=== PATIENT | female | born 1985 | race Caucasian/White ===

== ENCOUNTER 2020-04-12 07:16 | Outpatient (CLI) | payer MEDICAID, SELFPAY ==
[2020-04-13 14:39] LABS: COVID-19 RT-PCR Result NEGATIVE (Negative)
== END 2020-04-12 07:36 ==
PROVIDERS: PCP Nurse Practitioner Adult Health; Visit Provider Otolaryngology Otolaryngology/Facial Plastic Surgery
DX: Z11.59 Encounter for screening for other viral diseases (principal); Z01.818 Encounter for other preprocedural examination
CPT/HCPCS: U0003

== ENCOUNTER 2020-04-15 06:05 | Day surgery (SDC) | payer MEDICAID, SELFPAY ==
[2020-04-15] VITALS (8 sets, daily range): BP systolic 113–129; BP diastolic 58–78; PULSE 51–78; RESP 13–17; TEMP 36.5–36.6; O2SAT 100
[2020-04-15] MEDS: Lactated Ringers 1,000 ML 80 ML IV (07:00)
--- NOTE | 2020-04-15 07:36 | W.PM.DSUDISC ---
Discharge Plan Disposition Patient Disposition: HOME Discharge Details Attending Provider: Emery Lilly Primary Care Provider: Michelle Claudio Home Meds and New Rx's Prescriptions: No Action multivitamin [Daily Multi-Vitamin] 1 EACH tablet 1 ea PO DAILY RF: 0 omega-3 fatty acids 1,000 MG capsule 1,000 mg PO DAILY RF: 0 Mirena 1 EACH intrauterine device 1 ea Intrauterine ONCE Qty: 1 RF: 0 triamcinolone acetonide [Nasacort] 55 mcg Aerosol,[place] 1 spray INTRANASAL DAILY PRNRF: 0 DS: Diagnosis Discharge Diagnosis (1) Lesion of tonsil: Status: Acute (2) Papilloma of oral cavity: Status: Acute
--- NOTE | 2020-04-15 07:37 | W.PM.DSUDISC ---
Discharge Plan Disposition Patient Disposition: HOME Condition: Good Discharge Details Attending Provider: Emery Lilly Primary Care Provider: Michelle Claudio Home Meds and New Rx's Prescriptions: No Action multivitamin [Daily Multi-Vitamin] 1 EACH tablet 1 ea PO DAILY RF: 0 omega-3 fatty acids 1,000 MG capsule 1,000 mg PO DAILY RF: 0 Mirena 1 EACH intrauterine device 1 ea Intrauterine ONCE Qty: 1 RF: 0 triamcinolone acetonide [Nasacort] 55 mcg Aerosol,[place] 1 spray INTRANASAL DAILY PRNRF: 0 Discharge Instructions Additional Instructions: see sheet Activity:: Activity as Tolerated Remove Dressings/Wound Care:: 24 hours Shower/Bathe:: 24 hours Diet:: As Tolerated DS: Diagnosis Discharge Diagnosis (1) Lesion of tonsil: Status: Acute (2) Papilloma of oral cavity: Status: Acute
--- NOTE | 2020-04-15 07:38 | W.PROCNOTE ---
Date of service: 04/15/20 Procedure Note Date of procedure: 04/15/20 Procedure: Right tonsillectomy and excision uvula Surgeon/Proceduralist/Physician: Emery Lilly Procedure Diagnosis: oropharyngeal lesions Procedure Indications: lesions of OP region, suspect HPV. Pt has elected to only have right tonsil and lesions of uvula dealt with. She wishes to leave L tonsil in place Procedure Description: Patient was brought back to the operating suite in stable condition placed supine on the table and intubated in normal fashion. Timeout was taken to confirm proper patient and procedure. Oral McIvor retractor was placed in the oral cavity and suspended from Abdi stand, there was no evidence of bifid uvula or submucosal cleft of the soft palate. There was papillomatous type lesions of the left uvula as well as the right tonsil with widespread tonsil stones. Red rubber catheter was used and clamped to the side of the right soft palate to the oral cavity for palatal elevation. Curved Allis forceps was used to grab the superior pole of the right tonsil dissection within the peritonsillar fascial plane was performed with scant bleeding from the superior to mid pole to inferior aspect, final amputation performed with suction cautery, papillomatous mass with a tonsil excised in entirety. The uvula lesion on the left side was excised with electrocautery. Tonsil sponge was used to wipe the tonsillar fossa, there was no bleeding. Gastric contents were suctioned, oral McIvor retractor removed, no injury to dentition or jaw noted. Total blood loss 1 cc, stable to PACU.
--- NOTE | 2020-04-15 08:07 | TONSIL_PTH ---
PATIENT: Preeti Hayes LOC: [facility] U#:[id number] AGE/SX: 34/F ROOM: RE04/15/[address]: Emery Lilly DO : 1985 BED: DIS: 04/15/2020 SPEC #: [id number] RECD: 04/15/20 12:37 STATUS: [facility] REQ #: [id number] NATHAN: 04/15/20 08:[address]: Emery Lilly DEPT: Surgical Specimen RECD BY: Diana Andrews ENTERED: 04/15/20 12:37 SP TYPE: TONSIL OTHR DR: Michelle Claudio APRN Tissues: 1 - TONSIL AGE 17 & OVER 2 - UVULA Procedures: GROSS AND MICRO LEVEL 3 Comments: [id number]
[2020-04-15] MEDS: Oxymetazolone 0.05% SPRAY 15 ML BTL (08:12)
[2020-04-15] MEDS: fentaNYL 100 MCG/2 ML VIAL IVP ×2 (08:46→08:56)
[2020-04-15] MEDS: oxyCODONE 5 mg/Acetaminophen 325 mg TAB PO (10:05)
== END 2020-04-15 10:55 | disposition home or self-care (01) ==
PROVIDERS: PCP Nurse Practitioner Adult Health; Visit Provider Otolaryngology Otolaryngology/Facial Plastic Surgery
PROC: (CPT 42826; principal; 2020-04-15 07:30)
DX: D10.39 Benign neoplasm of other parts of mouth (principal)
CPT/HCPCS: 42826; 42104; 81025; 88304; J1100; J2001; J2250; J2405; J3010

== ENCOUNTER 2020-04-16 20:59 | Emergency (ER) | payer MEDICAID, SELFPAY ==
--- NOTE | 2020-04-16 21:09 | ED.GENADUL_ITS ---
Discharge Plan Disposition Patient Disposition: HOME Condition: Improving Discharge Details Chief Complaint: Allergic Clinical Impression: Allergic reaction Primary Care Provider: Michelle Claudio ED Provider: Kriss Posada Home Meds and New Rx's Prescriptions: New prednisone 20 mg tablet 40 mg PO DAILY Qty: 6 RF: 0 Continued multivitamin [Daily Multi-Vitamin] 1 EACH tablet 1 ea PO DAILY RF: 0 omega-3 fatty acids 1,000 MG capsule 1,000 mg PO DAILY RF: 0 Mirena 1 EACH intrauterine device 1 ea Intrauterine ONCE Qty: 1 RF: 0 triamcinolone acetonide [Nasacort] 55 mcg Aerosol,[place] 1 spray INTRANASAL DAILY PRNRF: 0 Discharge Instructions Instructions: General Allergic Reaction (ED) Additional Instructions: Based on you history, I am concerned that you are having allergic reaction to oxycodone. Please not take this medication.. Please contact your surgeon to discuss pain management as needed. May continue to use cold therapy to help with your discomfort. Please take the steroids as prescribed. If you develop fever/chills, difficulty breathing, shortness of breath, swelling of your tongue, rash or other new/worsening symptoms care urgently once again. Otherwise, please call your surgeon tomorrow to discuss your postoperative complication. Referrals: Emery Lilly DO [OSTEOPATHIC DOCTOR] - Michelle Claudio, [facility] [facility] [Primary Care Provider] - Discharge Data Discharge Date/Time-TO BE ENTERED AT DEPARTURE: 04/16/20 22:56 Medical Decision Making Patient pleasant 34-year-old female presents today with concern for allergic reaction. She reports that she underwent surgical intervention yesterday and has been on oxycodone. She reports that she took oxycodone at noon noted to be slightly itchy afterwards. Took a second dose again later this evening and reports that after that she began feeling like her lips and tongue were swelling. States that she is been having slight difficulty breathing. Reports that she has a known history to shrimp. Has not had reaction like this to medications historically. Reports that she has been on oxycodone before without reaction. She reports that she took 50 of Benadryl approximately 1 hour prior to arrival and does report that this did help somewhat with her symptoms but now she is feeling quite fatigued. On exam, patient appears anxious but otherwise nontoxic. Area of right tonsillectomy does appear to be healing well with no active bleeding. I do not appreciate any objective swelling of her lips or tongue. She is no wheezing, rales or rhonchi. Is moving air well. Hemodynamically stable. We will augment the Benadryl with famotidine, prednisone. Will give Zofran for nausea. Denies any evidence to suggest anaphylaxis will hold off on epinephrine at this time. Patient is feeling much improved. We will continue her on prednisone. Advised nonnarcotic options at this time. She seems to be tolerating her postoperative pain quite well. Appears to be healing well without evidence of complication. She will reach out to her ENT physician tomorrow to discuss further pain management if needed. We discussed return precautions. All of her questions and concerns were addressed and she is in agreement this plan. [facility] General Mode of arrival: ambulatory . Date/Time Provider Initiated Documentation: 04/16/20 21:02 . Limitations to Documentation: no limitations . Information obtained by: patient and RN notes reviewed . History of Present Illness 34 year old F presents to the emergency department with the chief complaint of allergic reaction, described as moderate, with intensity rated at 4. Quality is described as aching (s/p tonsillectomy), and is localized to the mouth. Patient started experiencing this hour(s) (allergic symptoms began at 4pm, endorses tongue swelling) and it has been constant. No relieving factors improve symptom(s), Medication worsens symptoms (oxycodone) . Patient notes shortness of breath; denies chest pain, cough, diaphoresis, fever/chills, headaches, loss of appetite, nausea/vomiting and rash. Patient did receive the following treatments prior to arrival, none Related Data Home Medications Medication Instructions Recorded Confirmed multivitamin [Daily Multi-Vitamin] 1 ea PO DAILY 12/18/13 04/15/20 omega-3 fatty acids 1,000 mg PO DAILY 12/18/13 04/15/20 Mirena 1 ea INTRAUTERINE ONCE #1 implant 08/04/17 04/10/20 triamcinolone acetonide [Nasacort] 1 spray INTRANASAL DAILY PRN 04/10/20 04/15/20 prednisone 40 mg PO DAILY #6 tab 04/16/20 Previous Rx's Medication Instructions Recorded prednisone 40 mg PO DAILY #6 tab 04/16/20 Allergies Allergy/AdvReac Type Severity Reaction Status Date / Time shrimp Allergy Severe below Verified 04/15/20 06:21 Review of Systems Constitutional Constitutional: Reports as per HPI, Denies chills, Denies fever(s) and Denies headache(s) Eyes Eyes: Reports as per HPI, Denies eye discharge and Denies irritation ENT Ears, Nose, Mouth, and Throat: Reports as per HPI and Denies headache(s) Cardiovascular Cardiovascular: Reports as per HPI, Denies chest pain, Reports dyspnea and Denies dyspnea on exertion Respiratory Respiratory: Reports as per HPI, Denies pain on inspiration, Denies pain with cough, Reports dyspnea, Denies dyspnea on exertion and Denies wheezing Gastrointestinal Gastrointestinal: Reports as per HPI, Denies abdominal pain, Denies change in bowel habits, Denies nausea and Denies vomiting Integumentary/Breasts Skin/Breast: Reports as per HPI and Denies rash Neurologic Neurologic: Reports as per HPI and Denies headache(s) Allergic/Immunologic Allergic/Immunologic: Denies wheezing PFSH Medical History History of motion sickness (Acute) Pt states getting worse as she gets older Shrimp allergy (Acute) anaphylaxis Surgical History Cervical Procedure LEEP procedure 2007 - Pt states no anesthesia Hx of wisdom tooth extraction (Acute) Post operative nausea Family History Mother No problems noted. Father Hyperlipidemia Sister No problems noted. Son No problems noted. Social History Smoking/Tobacco Use Status: Never Alcohol Intake: current Alcohol Intake frequency: a few times a week Alcohol type: beer and wine Drug use: Occasionally Substance use type: marijuana Do you feel safe at home: Yes Do you feel safe in your relationship?: Yes Exam Const General: cooperative, healthy appearing, comfortable, no acute distress, well developed and well groomed Nutritional Appearance: average body habitus and well nourished Orientation: alert and awake [facility] Head: normal to inspection, normocephalic and atraumatic Ears: hearing grossly normal bilaterally, external ears normal and TM's normal bilaterally General nose exam: external nose normal and nares normal Face and sinus: normal facial exam, sinuses nontender and face symmetric Mouth: oral mucosae normal, lip normal, tongue normal, oropharynx normal and moist mucous membranes Teeth and gingiva: dentition normal Throat: other (Consistent with recent surgery, appears to be healing well) Eyes General: appearance normal, both eyes and all related structures Neck Neck: normal visual inspection, full ROM, no lymphadenopathy and no meningeal signs Resp Effort & Inspection: normal respiratory effort, able to speak in complete sentences and no respiratory distress Auscultation: clear to auscultation bilaterally, no rales, no rhonchi and no wheezes Cardio Rate: regular rate Rhythm: regular rhythm Heart Sounds: S1 normal and S2 normal Skin General skin exam: no rashes or lesions noted Neuro General: patient alert and patient awake Cognition: normal cognition Speech: speech normal Gait: normal gait Psych Appearance: grossly normal and well kempt Mental Status: mental status grossly normal Speech and Movement: speech and movement normal
[2020-04-16 21:10] VITALS: BP 128/74; PULSE 79; RESP 16; TEMP 36.2; O2SAT 100
[2020-04-16] MEDS: Famotidine 20 MG TAB 40 MG PO (21:26)
[2020-04-16] MEDS: Ondansetron O.D.T. 4 MG TABEF PO (21:26)
[2020-04-16] MEDS: predniSONE 20 MG TAB 40 MG PO (21:27)
[2020-04-16 22:20] VITALS: BP 137/71; PULSE 61; RESP 16; TEMP 36.6; O2SAT 98
--- NOTE | 2020-04-16 22:21 | NUR.NOTE ---
Nursing Note: PT reports relief after medication. Pt reports decreased lip and tongue swelling. Pt continues to report weakness and fatigue.
== END 2020-04-16 22:56 | disposition home or self-care (01) ==
PROVIDERS: Emergency Provider Physician Assistant; PCP Nurse Practitioner Adult Health
DX: L29.9 Pruritus, unspecified (principal); R22.0 Localized swelling, mass and lump, head; R06.00 Dyspnea, unspecified; T40.2X5A Adverse effect of other opioids, initial encounter; Y83.6 Removal of other organ (partial) (total) as the cause of abnormal reaction of the patient, or of later complication, without mention of misadventure at the time of the procedure
CPT/HCPCS: 99283; 99284; J7512

== ENCOUNTER 2020-04-21 10:23 | Emergency (ER) | payer MEDICAID, SELFPAY ==
--- NOTE | 2020-04-21 10:24 | W.ED.GENAD ---
Discharge Plan Disposition Patient Disposition: HOME Condition: Stable Discharge Details Chief Complaint: Abd Prob Clinical Impression: Adnexal mass, Abdominal cramping Primary Care Provider: Michelle Claudio ED Provider: Kriss Posada Home Meds and New Rx's Prescriptions: Continued multivitamin [Daily Multi-Vitamin] 1 EACH tablet 1 ea PO DAILY RF: 0 omega-3 fatty acids 1,000 MG capsule 1,000 mg PO DAILY RF: 0 Mirena 1 EACH intrauterine device 1 ea Intrauterine ONCE Qty: 1 RF: 0 triamcinolone acetonide [Nasacort] 55 mcg Aerosol,[place] 1 spray INTRANASAL DAILY PRNRF: 0 prednisone 20 mg tablet 40 mg PO DAILY Qty: 6 RF: 0 Discharge Instructions Instructions: Abdominal Pain (ED) Additional Instructions: Your imaging is concerning for a 2 cm adnexal lesion on the right side as discussed. I would like for you to have ultrasound for further evaluation. As we discussed, Dr. Catalan does not feel that this consistent with torsion but is happy to see you in the office. A outpatient ultrasound has been ordered. Would also like for you to call [facility] wellness to schedule follow-up appointment, number listed below. If you develop fever/chills, increased/recurrent pain or other new/worsening symptoms seek care urgently once again. You may continue with the Tylenol and ibuprofen as previously advised your postoperative pain. Your next dose of ibuprofen is not due until 930 tonight. You were given IV anti-inflammatory here today. You may use Simethicone or Mylanta to help with GI upset if this recurs. Referrals: Michelle Claudio NP [Primary Care Provider] - Rolf Catalan MD [ [facility] STAFF PHYSICIAN] - Discharge Data Discharge Date/Time-TO BE ENTERED AT DEPARTURE: 04/21/20 14:00 Medical Decision Making Patient is a pleasant 34-year-old female presents today with chief complaint of right lower quadrant pain. Patient was actually seen by myself earlier this week for an allergic reaction which she reports subsided well after prednisone burst. She is no longer taking steroids. Patient is also status post tonsillectomy this week. Feels that she is healing well from this. Is using Tylenol and Advil to help with her post tonsillectomy discomfort. Has reported routine healing. She reports that this morning she was woken at 3 AM with right lower quadrant pain. She is not had pain like this historically. No previous abdominal surgeries. She endorses nausea but no vomiting. States that she has had 3 soft bowel movements which were orange. No change in urinary habits. Denies status. No previous abdominal surgeries. On exam, she appears anxious. Lungs are clear, normal cardiac exam. Abdomen is significant for pain over McBurney's point but otherwise, no peritoneal findings. No CVA tenderness. Plan to obtain labs, hydrate patient and obtain imaging to evaluate for potential early appendicitis. We did discuss pain management options. She did have an allergic reaction oxycodone this week. At this point, her pain seems to be fairly manageable but her anxiety is quite elevated. Will get half milligram of IV Ativan. CT reviewed by radiologist: FINDINGS: Limitations: None. Lungs: Minimal dependent likely atelectatic changes in the lung bases. Liver: Low-density lesion high in the right lobe of the liver measures 11 mm with the suggestion of some peripheral and nodular enhancement raising the question of a hemangioma.. Gallbladder and bile ducts: No gallstones or choledocholithiasis. Pancreas: Normal. No ductal dilation. Spleen: Normal. No splenomegaly. Adrenals: Normal. No mass. Kidneys and ureters: The kidneys enhance symmetrically without stone or hydronephrosis. Stomach and bowel: Sigmoid diverticuli. Wall thickening versus of the colon at the level of the splenic flexure without definite surrounding fatty stranding. Similar poor distension of the colon at the level of the a patent flexure. Ingested debris within the base of the cecum. Appendix: The appendix is best seen on the coronal images and measures only 6 mm in diameter. No secondary signs of acute appendicitis. Intraperitoneal space: Small amount of free fluid in the pelvis can be physiologic in younger females. Vasculature: Mild ectasia of the aorta. Pelvic varices. Lymph nodes: Unremarkable. No enlarged lymph nodes. Bladder: Unremarkable as visualized. Reproductive: IUD centrally in the uterus. Neck is a lesion on the right measures 29 mm can be followed with ultrasound. Slightly smaller lesion on the left. Bones/joints: Early degenerative changes at L5-S1 with loss of the disc space and some retrolisthesis as well as a bulging disc. No acute fracture. Soft tissues: Unremarkable. IMPRESSION: 1. No evidence of acute appendicitis. Minimal fatty stranding in the more remote mesentery of the midline pelvis without focality. 2. Regional areas of wall thickening versus nondistention of the colon, without surrounding fatty stranding, which are nonspecific. Follow-up suggested. 3. No free air. 4. Question hemangioma of the liver liver. No further follow-up is recommended. 5. Likely physiologic free fluid. 6. 29 mm low-density lesion right adnexa with a slightly smaller lesion on the left. Consider ultrasound follow-up per clinical indications. I requested water restoration technician but none available at this time. Consulted with Dr. Catalan with [facility]. He advised that based on the size of the low-density lesion as resolution of pain, there is a 0% chance of torsion. Do not feel that emergent transfer to facility with ultrasound capability was appropriate at this time. He did advise and he would follow-up with the patient in clinic. I discussed these findings as well as Dr. Catalan's recommendations with the patient. I did offer transfer to another facility for further evaluation with ultrasound. At this point, she does not believe that this is the source of her pain. She is now describing the pain is more of a cramping associated with using Tylenol or ibuprofen. This is only been noting since this morning. She has been using Tylenol and ibuprofen for the past 4 days in the postoperative setting. She is not having any epigastric discomfort. She has been using Prilosec. And I believe that her pain is consistent with ulcer. As the patient did have a recent allergic reaction to oxycodone, I am concerned that we have limited other options to help with her discomfort. Patient I discussed disposition at length. We had shared decision making and decided on discharge with outpatient ultrasound tomorrow with follow-up with [employer]. Patient feels comfortable discharge at this time. She does feel that it is medications that may be causing abdominal cramping when taken orally, will give her dose of Toradol here. We did discuss return precautions in depth, particularly signs of ovarian torsion. All of her questions and concerns were addressed, she isin agreement with this plan. HPI General Mode of arrival: ambulatory. Date/Time Provider Initiated Documentation: 04/21/20 10:24. Limitations to Documentation: no limitations. Information obtained by: patient and RN notes reviewed. History of Present Illness 35 year old F presents to the emergency department with the chief complaint of RLQ pain, described as moderate, with intensity rated at 3. Quality is described as aching, and is localized to the abdomen. Patient reports no radiation. Patient started experiencing this hour(s) (started at 0300) and it has been constant. No relieving factors improve symptom(s), No exacerbating factors reported . Patient notes loss of appetite and nausea/vomiting (nausea, no vomiting); denies chest pain, diaphoresis, fever/chills, rash, shortness of breath and weakness. Patient did receive the following treatments prior to arrival, NSAID and other (tylenol) Related Data Home Medications Medication Instructions Recorded Confirmed multivitamin [Daily Multi-Vitamin] 1 ea PO DAILY 12/18/13 04/15/20 omega-3 fatty acids 1,000 mg PO DAILY 12/18/13 04/15/20 Mirena 1 ea INTRAUTERINE ONCE #1 implant 08/04/17 04/10/20 triamcinolone acetonide [Nasacort] 1 spray INTRANASAL DAILY PRN 04/10/20 04/15/20 prednisone 40 mg PO DAILY #6 tab 04/16/20 Previous Rx's Medication Instructions Recorded prednisone 40 mg PO DAILY #6 tab 04/16/20 Allergies Allergy/AdvReac Type Severity Reaction Status Date / Time shrimp Allergy Severe below Verified 04/15/20 06:21 General SELENE: 3 Review of Systems Constitutional Constitutional: Reports as per HPI, Denies chills, Denies fatigue, Denies fever(s) and Denies headache(s) ENT Ears, Nose, Mouth, and Throat: Denies headache(s) Cardiovascular Cardiovascular: Reports as per HPI, Denies chest pain and Denies dyspnea Respiratory Respiratory: Reports as per HPI, Denies cough and Denies dyspnea Gastrointestinal Gastrointestinal: Reports as per HPI Musculoskeletal Musculoskeletal: Reports as per HPI and Denies back pain Integumentary/Breasts Skin/Breast: Reports as per HPI and Denies rash Neurologic Neurologic: Reports as per HPI and Denies headache(s) Endocrine Endocrine: Denies fatigue [facility] Medical History (Updated 04/24/20 @ 10:01 by Francesca Huang) History of motion sickness (Acute) Pt states getting worse as she gets older Lesion of tonsil (Inactive) Shrimp allergy (Acute) anaphylaxis Tonsil stone (Inactive) Surgical History Cervical Procedure LEEP procedure 2007 - Pt states no anesthesia Hx of wisdom tooth extraction (Acute) Post operative nausea Family History Mother No problems noted. Father Hyperlipidemia Sister No problems noted. Son No problems noted. Social History Smoking/Tobacco Use Status: Never Alcohol Intake: current Alcohol Intake frequency: a few times a week Alcohol type: beer and wine Drug use: Occasionally Substance use type: marijuana Do you feel safe at home: Yes Do you feel safe in your relationship?: Yes Exam Const General: cooperative, healthy appearing, uncomfortable (appears uncomfortable), well developed and anxious Nutritional Appearance: average body habitus and well nourished Orientation: alert and awake [facility] Head: normal to inspection Mouth: moist mucous membranes Throat: posterior oropharynx normal (post tonsillectomy appears to be healing well) Resp Effort & Inspection: normal respiratory effort, able to speak in complete sentences and no respiratory distress Auscultation: clear to auscultation bilaterally, no rales, no rhonchi and no wheezes Cardio Rate: regular rate Rhythm: regular rhythm Heart Sounds: S1 normal and S2 normal GI Inspection: normal to inspection Palpation: soft, no hepatosplenomegaly, not firm, no guarding, no hepatosplenomegaly, no hernias, no pulsatile masses, not rigid and tender in the RLQ and at McBurney's point; psoas sign negative and with no rebound tenderness Percussion: normal to percussion Auscultation: normal bowel sounds Back/Spine/Pelvis Back: no CVA tenderness Skin General skin exam: no rashes or lesions noted Trauma: no lacerations or abrasions Neuro General: patient alert and patient awake Cognition: normal cognition Speech: speech normal Gait: normal gait Psych Appearance: grossly normal and well kempt Mental Status: mental status grossly normal Speech and Movement: speech and movement normal Mood: anxious mood
[2020-04-21 10:29] VITALS: BP 133/78; PULSE 89; TEMP 36.6; O2SAT 98
[2020-04-21 10:52] LABS: Bilirubin Negative (Negative); Blood Negative (Negative); Clarity Clear (Clear); Glucose Negative (Negative); Ketones Negative (Negative); Leukocyte Esterase Negative (Negative); Nitrite Negative (Negative); Specific Gravity 1.015 (1.005-1.025); Urobilinogen 0.2 EU/dL (Up TO 0.2); pH 7.5 (5-8)
[2020-04-21 11:40] LABS: Abs Immature Grans 0.04 10^3/uL (0.0-0.06); Absolute Basophil Count 0.02 10^3/uL (0.0-0.2); Absolute Eosinophil Count 0.05 10^3/uL (0.0-0.7); Absolute Lymphocyte Count 1.21 10^3/uL (1.2-3.4); Absolute Monocyte Count 0.36 10^3/uL (0.1-0.8); Absolute Neutrophil Count 5.94 10^3/uL (1.2-6.7); Basophils % 0.3; Eosinophils % 0.7; HCT 37.8 % (36.0-46.0); HGB 12.6 g/dL (11.2-15.7); Immature Grans % 0.5; Lymphocytes % 15.9; MCH 29.3 pg (27.0-33.0); MCHC 33.3 % (32.0-36.0); MCV 87.9 fL (80-95); MPV 9.9 fL (8.0-11.0); Monocytes % 4.7; Neutrophils % 77.9; Nucleated RBC 0 %; Platelet Count 238 10^3/uL (130-400); RDW 12.7 % (11.7-14.6); WBC 7.62 10^3/uL (4.4-10.8)
[2020-04-21] MEDS: Lactated Ringers 1,000 ML 1000 ML IV (11:46)
[2020-04-21] MEDS: LORazepam 2 MG/ML VIAL 0.5 MG IVP (11:46)
[2020-04-21] MEDS: Normal Saline - Diluent 50 ML VIAL IV (11:55)
[2020-04-21 11:58] LABS: ALT 17 U/L (14-59); AST 12 U/L (15-37); Alkaline Phosphatase 54 U/L (46-116); Anion Gap 9.9 mmol/L (3-11); BUN 5 mg/dL (7-18); Bilirubin, Total 0.4 mg/dL (0.2-1.0); CO2 27.1 mmol/L (21.0-32.0); CREATININE 0.92 mg/dL (0.55-1.02); Calcium 9.7 mg/dL (8.5-10.1); Chloride 104 mmol/L (98-107); Glucose 96 mg/dL (74-106); Potassium 3.6 mmol/L (3.5-5.1); Sodium 141 mmol/L (136-145); Total Protein 7.4 g/dL (6.4-8.2)
[2020-04-21] MEDS: Omnipaque 350 MG/ML 100 ML BTL IJ (12:06)
[2020-04-21] MEDS: Normal Saline Flush 10 ML SYR IVP (12:06)
--- NOTE | 2020-04-21 12:10 | DI.CT_ITS ---
EXAM: CT ABDOMEN PELVIS W CLINICAL HISTORY: pain over McBurney's point TECHNIQUE: Imaging Protocol: Axial computed tomography images with coronal and sagittal reformatted images were created and reviewed CONTRAST MATERIAL: Intravenous: Omnipaque 350 Contrast volume:91 mL Oral: No COMPARISON: No exams were available for comparison FINDINGS: ABDOMEN: Lung Bases: Mild dependent atelectasis. Liver: Normal density. 1.1 cm hypodense lesion in the dome of the right lobe of the liver. There is a question of peripheral nodular enhancement and a hemangioma should be considered. Portal, Superior Mesenteric, and Splenic Veins: Unremarkable. Gallbladder and Biliary Tract: No radiodense calculus or dilation. Pancreas: Normal density, no abnormal calcifications or inflammatory process. Spleen: Normal. Adrenals: No masses seen. Kidneys: Normal size, contour and axis. No radiodense stones or obstructive uropathy. No masses seen. Abdominal Aorta: Abdominal portion non-dilated. Bowel: There is thickening of the wall of the colon in the splenic flexure without surrounding edema. This may be due to underdistention. No evidence of an acute appendicitis. There is a 1.1 cm density seen in the base of the cecum which may be ingested material. Peritoneal Cavity: There is a small amount of free fluid in the pelvis which may be physiologic. Lymph Nodes: Within normal limits. Bones: Mild degenerative changes seen in the L5-S1 disc space. Soft Tissues: Unremarkable. PELVIS: Bladder: Symmetric distention, no gross wall thickening. Reproductive Organs: IUD in good position. Round low-density lesions seen in the ovaries. The largest is on the right and measures 3 cm. These likely reflect cysts. Lymph Nodes: Within normal limits. Bones: Within normal limits. IMPRESSION: 1. No evidence of acute appendicitis. 2. Apparent wall thickening in the colon which likely reflects under distension. No pericolonic infla mmatory changes are seen. 3. Question of a hemangioma in the liver. 4. No free air. RADIATION DOSE DELIVERED: 647.2mGy.cm Total DLP DATA REPOSITORY: All CT scans at this facility are submitted to the National Radiology Data Registry (NRDR) Dose Index Registry (DIR) with the [employer] (A[employer]). RADIATION OPTIMIZATION: All CT scans at this facility use at least one of these dose optimization te chniques: automated exposure control; mA and/or kV adjustment per patient size (includes targeted exa ms where dose is matched to clinical indication); or iterative reconstruction.
[2020-04-21 12:11] VITALS: BP 127/66; PULSE 63; RESP 16; O2SAT 99
--- NOTE | 2020-04-21 12:26 | DI.VRAD_ITS ---
PROCEDURE INFORMATION: Exam: CT Abdomen And Pelvis With Contrast Exam date and time: 04/21/2020 12:00 PM Age: 34 years old Clinical indication: Other: Pain over mcburney's point TECHNIQUE: Imaging protocol: Computed tomography of the abdomen and pelvis with intravenous contrast. Contrast material: OMNIPAQUE 350; Contrast volume: 91 ml; Contrast route: INTRAVENOUS (IV); COMPARISON: No relevant prior studies available. FINDINGS: Limitations: None. Lungs: Minimal dependent likely atelectatic changes in the lung bases. Liver: Low-density lesion high in the right lobe of the liver measures 11 mm with the suggestion of some peripheral and nodular enhancement raising the question of a hemangioma.. Gallbladder and bile ducts: No gallstones or choledocholithiasis. Pancreas: Normal. No ductal dilation. Spleen: Normal. No splenomegaly. Adrenals: Normal. No mass. Kidneys and ureters: The kidneys enhance symmetrically without stone or hydronephrosis. Stomach and bowel: Sigmoid diverticuli. Wall thickening versus of the colon at the level of the splenic flexure without definite surrounding fatty stranding. Similar poor distension of the colon at the level of the a patent flexure. Ingested debris within the base of the cecum. Appendix: The appendix is best seen on the coronal images and measures only 6 mm in diameter. No secondary signs of acute appendicitis. Intraperitoneal space: Small amount of free fluid in the pelvis can be physiologic in younger females. Vasculature: Mild ectasia of the aorta. Pelvic varices. Lymph nodes: Unremarkable. No enlarged lymph nodes. Bladder: Unremarkable as visualized. Reproductive: IUD centrally in the uterus. Neck is a lesion on the right measures 29 mm can be followed with ultrasound. Slightly smaller lesion on the left. Bones/joints: Early degenerative changes at L5-S1 with loss of the disc space and some retrolisthesis as well as a bulging disc. No acute fracture. Soft tissues: Unremarkable. IMPRESSION: 1. No evidence of acute appendicitis. Minimal fatty stranding in the more remote mesentery of the midline pelvis without focality. 2. Regional areas of wall thickening versus nondistention of the colon, without surrounding fatty stranding, which are nonspecific. Follow-up suggested. 3. No free air. 4. Question hemangioma of the liver liver. No further follow-up is recommended. 5. Likely physiologic free fluid. 6. 29 mm low-density lesion right adnexa with a slightly smaller lesion on the left. Consider ultrasound follow-up per clinical indications. Dictated and Authenticated by: Arcenio Light MD. Ordering:CECY Monterroso MD
[2020-04-21] MEDS: Ketorolac 30 MG/ML VIAL IM (13:31)
[2020-04-21 13:32] VITALS: BP 137/73; PULSE 52; RESP 16; O2SAT 99
== END 2020-04-21 14:00 | disposition home or self-care (01) ==
PROVIDERS: Emergency Provider Physician Assistant; PCP Nurse Practitioner Adult Health
DX: R10.31 Right lower quadrant pain (principal); R11.0 Nausea; R93.5 Abnormal findings on diagnostic imaging of other abdominal regions, including retroperitoneum
CPT/HCPCS: 36415; 80053; 81025; 96361; 96372; 96374; 99285; 74177; 81003; 85025; 99284; J1885; J2060; J3490

== ENCOUNTER 2020-04-22 07:44 | Outpatient (CLI) | payer MEDICAID, SELFPAY ==
--- NOTE | 2020-04-22 | DI.US_ITS ---
EXAM: US PELVIS TRANSVAGINAL CLINICAL HISTORY: 29 MM ADENEXAL MASS RT SIDE. TECHNIQUE: Transabdominal and transvaginal pelvic ultrasound was performed using standard protocol. COMPARISON: US CERVICAL LENGTH TRANSVAG OB from 03/09/[address] ABDOMEN PELVIS W from 04/21/[address] ABDOMEN PELVIS W from 04/21/2020 FINDINGS: KIDNEYS: Kidneys are symmetric in size. No evidence of renal calculi. No evidence of hydronephrosis. No renal mass or cyst identified. UTERUS: Position: Anteverted. Size: 8.8 long by 4.8 AP by 5.9 transverse cm Endometrium: 0.1 cm. Normal for patient's menstrual status. There is an IUD in good position. Myometrium: Unremarkable. Cervix: Unremarkable. OVARIES: Right: 3.2 x 1.9 x 2.0 cm Cyst or mass: 1.2 x 0.9 x 1 cm cyst. Left: 2.3 x 1.1 x 1.4 cm Cyst or mass: Small follicular cysts. DOPPLER: Color: Symmetric and uniform flow to both ovaries. No hyperemia. Duplex: Normal ovarian arterial waveforms visualized. CUL-DE-SAC: Free fluid: None. Other: None. IMPRESSION: 1. Normal sonographic appearance of the kidneys. 2. Normal-appearing uterus with endometrial stripe within normal limits. 3. IUD is in good position. 4. 1.2 x 0.9 x 1 cm dominant right ovarian cyst. Otherwise unremarkable ovaries. DATA REPOSITORY:
== END 2020-04-22 08:04 ==
PROVIDERS: PCP Nurse Practitioner Adult Health; Visit Provider Physician Assistant
DX: N83.201 Unspecified ovarian cyst, right side (principal)
CPT/HCPCS: 76830; 76856

== ENCOUNTER 2020-06-28 09:31 | Emergency (ER) | payer MEDICAID, SELFPAY ==
[2020-06-28] VITALS (29 sets, daily range): BP systolic 114–133; BP diastolic 56–98; PULSE 52–71; RESP 10–31; TEMP 37.1; O2SAT 97–100
--- NOTE | 2020-06-28 09:45 | RT.EKG_ITS ---
APPROVED REPORT Exam: Resting ECG Patient Location: E HR:74 bpm ECG Measurements Heart Rate 74 AXIS MS 135 P 49 QRSd 126 QRS 23 QT 396 T 30 QTc 441 Conclusion Sinus rhythm...normal P axis, V-rate 60- 99 Right bundle branch block...QRSd>120, terminal axis(90,270)
--- NOTE | 2020-06-28 10:41 | W.ED.GENAD ---
Discharge Plan Disposition Patient Disposition: HOME Condition: Stable Discharge Details Clinical Impression: Lightheadedness, Loose stools Primary Care Provider: Michelle Claudio ED Provider: Jorge Gunderson Home Meds and New Rx's Prescriptions: Continued multivitamin [Daily Multi-Vitamin] 1 EACH tablet 1 ea PO DAILY RF: 0 Mirena 1 EACH intrauterine device 1 ea Intrauterine ONCE Qty: 1 RF: 0 triamcinolone acetonide [Nasacort] 55 mcg Aerosol,[facility] 1 spray INTRANASAL DAILY PRNRF: 0 Discharge Instructions Additional Instructions: Please follow-up with your primary care physician. 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 A Covid test was performed today and is pending. Please maintain isolation at home until Covid test result is negative. Please return to the emergency department for any worsening or new concerning symptoms. Referrals: Michelle Claudio, [employer]PER[employer] ANALYST [Primary Care Provider] - Discharge Data Discharge Date/Time-TO BE ENTERED AT DEPARTURE: 06/28/20 13:15 Medical Decision Making 35-year-old female with no significant past medical history here with lightheadedness, generally not feeling well with loose stool this morning. Hemodynamically stable. No concerning findings on exam. --Labs reviewed and nondiagnostic. Normal electrolytes. Normal D-dimer and troponin. Orthostatic vital signs normal. Patient remains hemodynamically stable. Patient reassessed and feeling better after IV fluid. Patient has been observed here in the emerge department for a few hours and has had no arrhythmia noted on continuous cardiac monitoring. I think it would be beneficial to continue outpatient cardiac monitoring. I will order 14-day monitor to expedite outpatient work-up. Plan will be for her to follow-up with her primary care physician. Usual customary discharge instructions reviewed with the patient. She was encouraged to call her primary care physician today to arrange follow-up. HPI General Mode of arrival: ambulatory. Date/Time Provider Initiated Documentation: 06/28/20 10:10. Limitations to Documentation: no limitations. Information obtained by: patient. HPI Narrative: 35-year-old female presents with chief complaint of dizziness. Patient notes feeling lightheaded this morning. Symptoms came on rather suddenly and have waxed and waned. She notes that she felt flushed and like she was going to pass out. She did have a loose stool and some nausea. Symptoms moderate to severe with no modifiers. Patient denies chest pain or shortness of breath. No abdominal pain. Last night she notes she felt more tired than usual but otherwise well. Patient denies recent immobility, surgery, calf pain or swelling. Related Data Home Medications Medication Instructions Recorded Confirmed multivitamin [Daily Multi-Vitamin] 1 ea PO DAILY 12/18/13 06/28/20 Mirena 1 ea INTRAUTERINE ONCE #1 implant 08/04/17 06/28/20 triamcinolone acetonide [Nasacort] 1 spray INTRANASAL DAILY PRN 04/10/20 06/28/20 Allergies Allergy/AdvReac Type Severity Reaction Status Date / Time shrimp Allergy Severe below Verified 06/28/20 09:42 General Stated Complaint: Dizzy/Sync SELENE: 3 Review of Systems All systems reviewed & are unremarkable except as noted in HPI and below Constitutional Constitutional: Reports as per HPI and Denies fever(s) Gastrointestinal Gastrointestinal: Reports as per HPI and Reports nausea PFSH Medical History History of motion sickness Pt states getting worse as she gets older Lesion of tonsil Shrimp allergy anaphylaxis Tonsil stone Surgical History Cervical Procedure LEEP procedure 2006 - Pt states no anesthesia Hx of wisdom tooth extraction Post operative nausea Family History Mother No problems noted. Father Hyperlipidemia Sister No problems noted. Son No problems noted. Social History Smoking/Tobacco Use Status: Never Smoking risk assessment performed?: Yes Alcohol Intake: current Alcohol Intake frequency: a few times a week Alcohol type: beer and wine Drug use: Occasionally Substance use type: marijuana Do you feel safe at home: Yes Do you feel safe in your relationship?: Yes Exam Const General: cooperative and no acute distress HENMT Mouth: moist mucous membranes Eyes Conjunctivae: normal conjunctivae Sclera: normal sclerae Neck Neck: trachea midline and supple Resp Auscultation: clear to auscultation bilaterally, no rales, no rhonchi and no wheezes Cardio Jugular venous pressure: no JVD Rate: regular rate and not tachycardic Rhythm: regular rhythm Heart Sounds: no murmurs GI Palpation: soft, not firm, no guarding, no masses, not rigid and nontender Skin General skin exam: no rashes or lesions noted Neuro General: patient alert, patient awake, patient oriented x3 and tone normal Cranial Nerves: CN's II-XI intact bilaterally Cognition: normal cognition Speech: speech normal Motor: muscle tone normal throughout and strength 5/5 throughout Sensory Exam: no sensory deficits noted Extrem General: no edema Psych Appearance: grossly normal Mental Status: mental status grossly normal Speech and Movement: speech and movement normal Course Vital Signs Vital signs: Vital Signs Temperature 37.1 C 06/28/20 09:38 Pulse 69 06/28/20 09:38 Respiratory Rate 18 06/28/20 09:38 Blood Pressure 133/68 06/28/20 09:38 Pulse Oximetry 99 06/28/20 09:38 Temperature 37.1 C 06/28/20 09:38 Temperature Source Temporal Artery Scan 06/28/20 09:38 Pulse 69 06/28/20 09:38 Respiratory Rate 18 06/28/20 09:44 Respiratory Effort 06/28/20 09:44 Respiratory Depth Normal 06/28/20 09:44 Respiratory Pattern Normal 06/28/20 09:44 Blood Pressure 133/68 06/28/20 09:38 Blood Pressure Position Sitting 06/28/20 09:38 Pulse Oximetry 99 06/28/20 09:38 Oxygen Delivery Method Room Air 06/28/20 09:38 Oxygen Flow Rate 0 06/28/20 09:38 Pain Level 4 06/28/20 09:38
[2020-06-28] MEDS: Lactated Ringers 1,000 ML 1000 ML IV (11:04)
[2020-06-28 11:21] LABS: Bilirubin Negative (Negative); Blood Negative (Negative); Clarity Clear (Clear); Glucose Negative (Negative); Ketones Negative (Negative); Leukocyte Esterase Negative (Negative); Nitrite Negative (Negative); Specific Gravity 1.015 (1.005-1.025); Urobilinogen 0.2 EU/dL (Up TO 0.2)
[2020-06-28 11:47] LABS: Abs Immature Grans 0.02 10^3/uL (0.0-0.06); Absolute Basophil Count 0.01 10^3/uL (0.0-0.2); Absolute Eosinophil Count 0.04 10^3/uL (0.0-0.7); Absolute Lymphocyte Count 0.76 10^3/uL (1.2-3.4); Absolute Monocyte Count 0.25 10^3/uL (0.1-0.8); Basophils % 0.1; Eosinophils % 0.6; HCT 40.4 % (36.0-46.0); HGB 13.1 g/dL (11.2-15.7); Immature Grans % 0.3; Lymphocytes % 10.9; MCH 29.1 pg (27.0-33.0); MCHC 32.4 % (32.0-36.0); MCV 89.8 fL (80-95); MPV 9.7 fL (8.0-11.0); Monocytes % 3.6; Neutrophils % 84.5; Nucleated RBC 0 %; Platelet Count 226 10^3/uL (130-400); RDW 12.3 % (11.7-14.6); RDW-SD 40.8 fL; WBC 6.98 10^3/uL (4.4-10.8)
[2020-06-28 12:06] LABS: ALT 23 U/L (14-59); AST 25 U/L (15-37); Albumin 4.2 g/dL (3.4-5.0); Alkaline Phosphatase 56 U/L (46-116); Anion Gap 9.1 mmol/L (3-11); BUN 13 mg/dL (7-18); Bilirubin, Total 0.5 mg/dL (0.2-1.0); CO2 26.9 mmol/L (21.0-32.0); CREATININE 0.87 mg/dL (0.55-1.02); Calcium 9.2 mg/dL (8.5-10.1); Chloride 106 mmol/L (98-107); Glucose 105 mg/dL (74-106); Magnesium 1.9 mg/dL (1.8-2.4); Sodium 142 mmol/L (136-145); Total Protein 7.5 g/dL (6.4-8.2)
[2020-06-28 12:07] LABS: Troponin I < 0.05 ng/mL (<0.06)
[2020-06-28 12:24] LABS: D-Dimer 168 ng/mlFEU (<500)
[2020-06-28 13:30] LABS: Troponin I < 0.05 ng/mL (<0.06)
[2020-07-02 20:21] LABS: Patient Race White; SARS-CoV-2 RNA Undetected (Undetected); SARS-CoV-2 Specimen Source Nasopharynx
--- NOTE | 2020-07-03 09:41 | NUR.NOTE ---
Spoke with patient, verified identity and relayed negative covid test results to her.
== END 2020-06-28 13:15 | disposition home or self-care (01) ==
PROVIDERS: Emergency Provider Student in an Organized Health Care Education/Training Program; PCP Nurse Practitioner Adult Health
DX: R42 Dizziness and giddiness (principal); R19.7 Diarrhea, unspecified; R11.0 Nausea; Z11.59 Encounter for screening for other viral diseases
CPT/HCPCS: 0296T; 36415; 80053; 81025; 93005; 96360; 99284; U0003; 81003; 83735; 84484; 85025; 85379; 93010

== ENCOUNTER 2020-07-15 10:44 | Outpatient (REF) | payer MEDICAID, SELFPAY ==
[2020-07-15 18:49] LABS: TSH 0.96 uIU/mL (0.36-3.74)
== END 2020-07-15 11:04 ==
LOC: LBO 10:44
PROVIDERS: PCP Nurse Practitioner Adult Health; Referring Provider Nurse Practitioner Adult Health; Visit Provider Nurse Practitioner Adult Health
DX: E04.9 Nontoxic goiter, unspecified (principal)
CPT/HCPCS: 84443

== ENCOUNTER 2020-08-05 04:11 | Outpatient (CLI) | payer MEDICAID, SELFPAY ==
[2020-08-06 19:52] LABS: Clam IgE <0.35 kU/L; Codfish IgE <0.35 kU/L; Crab IgE <0.35 kU/L; Halibut IgE <0.35 kU/L; Lobster IgE <0.35 kU/L; Mackerel IgE <0.35 kU/L; Oyster IgE <0.35 kU/L; Salmon IgE <0.35 kU/L; Scallop IgE <0.35 kU/L; Shrimp IgE 1.04 kU/L; Trout IgE <0.35 kU/L; Tuna IgE <0.35 kU/L
[2020-08-08 17:41] LABS: CLASS 0; Perch Ocean IgE <0.35 kU/L (<0.35)
--- NOTE | 2020-08-12 12:23 | ZIOP_ITS ---
Date of service: 08/12/20 Time of Service: 12:23 14 Day Enforcement Officer Referring Provider:: Nic Indications:: Dizziness Note: This is a 14-day remote monitor ordered for indication of dizziness. ?The patient was in normal sinus rhythm for the majority the recording with an average heart rate of 67 bpm. There were episodes of sinus tachycardia with a maximum heart rate of 157 bpm. ?The patient had 4 singular ventricular ectopic beats and 16 total supraventricular ectopic beats. ?There were no episodes of supraventricular tachycardia nor any episodes of ventricular tachycardia. ?There are no episodes of atrial fibrillation, no pauses greater than 3 seconds and no evidence of high degree heart block. ?All patient triggered events were associated with sinus rhythm or sinus tachycardia.
== END 2020-08-05 04:31 ==
PROVIDERS: PCP Nurse Practitioner Adult Health; Visit Provider Otolaryngology Otolaryngology/Facial Plastic Surgery
DX: Z91.018 Allergy to other foods (principal)
CPT/HCPCS: 36415; 86003

== ENCOUNTER 2021-05-09 17:21 | Outpatient (CLI) | payer OTHER, MEDICAID, SELFPAY ==
[2021-05-09 14:16] LABS: Abs Immature Grans 0.01 10^3/uL (0.0-0.06); Absolute Basophil Count 0.02 10^3/uL (0.0-0.2); Absolute Eosinophil Count 0.06 10^3/uL (0.0-0.7); Absolute Lymphocyte Count 1.28 10^3/uL (1.2-3.4); Absolute Monocyte Count 0.28 10^3/uL (0.1-0.8); Absolute Neutrophil Count 3.34 10^3/uL (1.2-6.7); Basophils % 0.4; Eosinophils % 1.2; HGB 12.7 g/dL (11.2-15.7); Immature Grans % 0.2; Lymphocytes % 25.7; MCH 28.9 pg (27.0-33.0); MCHC 31.8 % (32.0-36.0); MCV 90.9 fL (80-95); Monocytes % 5.6; Neutrophils % 66.9; Nucleated RBC 0 %; Platelet Count 227 10^3/uL (130-400); RDW 12.5 % (11.7-14.6); RDW-SD 41.4 fL; WBC 4.99 10^3/uL (4.4-10.8)
[2021-05-09 14:41] LABS: Hemoglobin A1C 5.4 % (<5.7)
[2021-05-09 15:21] LABS: ALT 29 U/L (14-59); AST 21 U/L (15-37); Albumin 4.6 g/dL (3.4-5.0); Alkaline Phosphatase 61 U/L (46-116); Anion Gap 5.5 mmol/L (3-11); BUN 8 mg/dL (7-18); Bilirubin, Total 0.5 mg/dL (0.2-1.0); CO2 30.5 mmol/L (21.0-32.0); Calcium 9.4 mg/dL (8.5-10.1); Chloride 108 mmol/L (98-107); Creatine Kinase 102 U/L (26-192); FREE T4 1.13 ng/dL (0.76-1.46); Glucose 101 mg/dL (74-106); Lipase 101 U/L (73-393); Potassium 4.3 mmol/L (3.5-5.1); Sodium 144 mmol/L (136-145); TSH 0.89 uIU/mL (0.36-3.74); Total Protein 7.6 g/dL (6.4-8.2)
[2021-05-09 15:25] LABS: C-Reactive Protein < 0.05 mg/dL (0.0-0.3)
[2021-05-09 16:06] LABS: Folate > 20.0 ng/mL (8.6-20.0); Vitamin B12 658 pg/mL (193-986)
[2021-05-09 22:25] LABS: T3, Total 129 ng/dL (97-169)
[2021-05-09 22:39] LABS: Thyroglobulin Antibody <15 U/mL (<=60); Thyroperoxidase Antibody <28 U/mL (<=60)
[2021-05-12 04:41] LABS: Vitamin D 25 Total 46.6 ng/mL (30-100)
[2021-05-12 10:56] LABS: Hepatitis C Ab w Rflx HCV PCR Negative (Negative)
[2021-05-12 12:16] LABS: IgA 143 mg/dL (85-499); Interpretation (See Note); Tissue Transglutaminase IgA <1.2 U/mL (<4.0)
[2021-05-12 12:51] LABS: HIV-1/2 Ag & Ab Screen Negative (Negative)
== END 2021-05-09 17:22 | disposition home or self-care (01) ==
LOC: LBO 18:10
PROVIDERS: PCP Nurse Practitioner Adult Health; Visit Provider Nurse Practitioner Adult Health
DX: E04.9 Nontoxic goiter, unspecified; R42 Dizziness and giddiness; R00.1 Bradycardia, unspecified; F41.9 Anxiety disorder, unspecified; K63.89 Other specified diseases of intestine; R10.9 Unspecified abdominal pain; R11.0 Nausea; R55 Syncope and collapse; Z12.4 Encounter for screening for malignant neoplasm of cervix; Z11.59 Encounter for screening for other viral diseases; R19.4 Change in bowel habit; R10.30 Lower abdominal pain, unspecified; R93.5 Abnormal findings on diagnostic imaging of other abdominal regions, including retroperitoneum; Z78.9 Other specified health status; Z83.3 Family history of diabetes mellitus; Z83.49 Family history of other endocrine, nutritional and metabolic diseases
CPT/HCPCS: 36415; 80053; 82306; 82550; 82784; 83516; 83690; 86376; 86803; 87389; 82607; 82746; 83036; 84439; 84443; 84480; 85025; 86140

== ENCOUNTER 2021-05-10 13:00 | Outpatient (REF) | payer OTHER, MEDICAID, SELFPAY | END 2021-05-10 13:01 | disposition home or self-care (01) | LOC: LBN 13:00 | PROVIDERS: PCP Nurse Practitioner Adult Health; Visit Provider Nurse Practitioner Adult Health | DX: R19.4 Change in bowel habit (principal); K63.89 Other specified diseases of intestine | CPT/HCPCS: 83630 ==

== ENCOUNTER 2021-05-12 07:28 | Emergency (ER) | payer OTHER, MEDICAID, SELFPAY ==
[2021-05-12] VITALS (101 sets, daily range): BP systolic 102–142; BP diastolic 52–86; PULSE 54–94; RESP 10–24; TEMP 36.5; O2SAT 97–100
--- NOTE | 2021-05-12 07:30 | RT.EKG_ITS ---
APPROVED REPORT Exam: Resting ECG Reason for Exam: sob Patient Location: E HR:69 bpm ECG Measurements Heart Rate 69 AXIS MA 131 P 29 QRSd 117 QRS 25 QT 383 T 33 QTc 411 Conclusion Sinus rhythm...normal P axis, V-rate 60- 99 Incomplete right bundle branch block...QRSd >112, terminal axis(90,270) sinus rhythm at 69, normal axis, incomplete right bundle branch block, no major change from prior 06/28/2020, no STEMI, nondiagnostic EKG
--- NOTE | 2021-05-12 07:55 | W.ED.GENAD ---
Discharge Plan Disposition Patient Disposition: HOME Condition: Stable Discharge Details Clinical Impression: Abdominal pain, Lightheadedness Primary Care Provider: Michelle Claudio ED Provider: Merlyn Gunderson Home Meds and New Rx's Prescriptions: Continued fluticasone propionate [Flonase Allergy Relief] 50 mcg/actuation spray,suspension 1 spray intranasal DAILY PRN (Reason: allergy symptoms) RF: 0 cyanocobalamin (vitamin B-12) 5,000 mcg capsule 5,000 mcg PO DAILY RF: 0 multivitamin [Daily Multi-Vitamin] 1 EACH tablet 1 ea PO DAILY RF: 0 Mirena 1 EACH intrauterine device 1 ea Intrauterine ONCE Qty: 1 RF: 0 No Action ibuprofen 200 mg Tablet 400 mg PO PRN PRNRF: 0 metoclopramide HCl [Reglan] 10 mg tablet 10 mg PO Q6H PRNQty: 10 RF: 0 Saccharomyces boulardii [Florastor] 250 mg capsule 250 mg PO BID Qty: 20 RF: 0 doxycycline monohydrate 100 mg capsule 100 mg PO BID Qty: 42 RF: 0 Discharge Instructions Instructions: Acute Diarrhea (ED), Abdominal Pain (ED), Near Syncope (ED) Additional Instructions: Please return immediately to the emergency department if you develop any new or worsening symptoms, if your condition does not improve as expected, or if you become otherwise concerned. It is extremely important that you call soon as possible to make an appointment to be seen in follow-up for this visit by your primary care doctor. An outpatient echocardiogram has been ordered. If you do not hear from [facility] for scheduling, please call the number provided to schedule this appointment. Referrals: Michelle Claudio, [employer] [Primary Care Provider] - Discharge Data Discharge Date/Time-TO BE ENTERED AT DEPARTURE: 05/12/21 13:43 Medical Decision Making Preeti Hayes is a 36-year-old woman without reported history of major medical problems who presented to emergency department with abdominal cramping, diarrhea, lightheadedness, nausea every morning over the past 8 days, improves with food. On exam patient is well and nontoxic-appearing. There is no abdominal tenderness to palpation. Benign cardiopulmonary exam. Wide differential at this point including metabolic/lyte derangement, inflammatory bowel disease, irritable bowel syndrome, less likely tickborne illness, paraneoplastic syndrome, Covid, myocarditis, pulmonary embolism, arrhythmia, c. diif, other. Exam/history at this time is not consistent with sepsis, acute aortic pathology, meningitis, other acute emergent intracranial process. EKG obtained, shows normal sinus rhythm with incomplete right bundle branch block without major change from prior, nondiagnostic. Plan for IV placement, telemetry, IV fluid hydration, urinalysis, urine test, screening labs, CT abdomen/pelvis, chest x-ray versus CT chest pending D-dimer. B12 level, TSH, celiac screen sent 05/09. Will send stool studies if patient able to produce sample. d-dimer negative, plan for CXR. Labs reviewed, trop neg, sodium 147, chloride 109, anion gap 9.2, creatinine 0.8, WBC 5, hemoglobin 13.6, urine negative. Patient reports sensation of heart racing during ED stay, normal sinus rhythm on monitor. Patient reporting nausea. Denying any pain. CT abdomen/pelvis negative for acute process. Repeat troponin EKG negative. Unclear etiology of symptoms at this time. Patient has send out labs pending from PCP and from this ED encounter. Plan for outpatient echo for lightheadedness. At this time no emergent medical condition has been identified, Pt is appropriate for discharge. No symptoms at this time. I had a lengthy discussion with Patient regarding return to emergency department precautions, home care, and importance of outpatient follow-up. Pt verbalizes understanding of the plan and is amenable. Patient discharged to home with clear plan for outpatient follow-up. All questions were answered. Disposition decision was made weighing the risks and benefits of hospitalization versus outpatient treatment, the risk for further decompensation, and the patient's wishes. Medical Records Medical records reviewed: Yes I reviewed the patient's medical records. Imaging Data Radiologic Study: Attestation: I personally reviewed and interpreted this imaging study as follows: Radiologist's impression: EXAM: XR CHEST 2V PA LATERAL CLINICAL HISTORY: lightheadedness. TECHNIQUE: 2D digital imaging was performed. COMPARISON: No exams were available for comparison FINDINGS: Heart size is normal. The mediastinum is not widened. Lungs are clear. No infiltrates nor pleural effusions. IMPRESSION: No acute pulmonary findings. EXAM: CT ABDOMEN PELVIS W CLINICAL HISTORY: abd pain, diarrhea. TECHNIQUE: Imaging Protocol: Axial computed tomography images with coronal and sagittal reformatted images were created and reviewed CONTRAST MATERIAL: Intravenous: Omnipaque 100cc Oral: Yes COMPARISON: CT CT ABDOMEN PELVIS W from 04/21/2020 FINDINGS: VISUALIZED LUNG BASES: No nodules nor pleural effusions evident. ABDOMEN: There is no ascites. LIVER: Again noted is a previously described small lesion in the superior aspect of the liver-right hepatic lobe. This has the appearance of a small benign hemangioma and measures approximately 10 x 9 millimeters. No other focal hepatic findings. No significant dilatation of intrahepatic ducts. GALLBLADDER/BILIARY: No obvious gallbladder pathology. CBD is not dilated. PANCREAS: No evidence of pancreatic mass nor dilatation of the pancreatic duct. SPLEEN: Spleen is not enlarged. No obvious intrasplenic lesions. Splenic and portal veins are patent. ADRENALS: There are no significant adrenal masses. KIDNEYS:No cysts evident. No solid renal masses. No calculi nor hydronephrosis.. ABDOMINAL AORTA: Abdominal aorta is not enlarged. LYMPH NODES:There is no retroperitoneal nor paraaortic adenopathy. ABDOMINAL WALL: Small fat containing umbilical hernia. GI: There is no evidence of bowel obstruction, free air, nor abscess. No obvious colitis pattern. PELVIS: GI: Appendix is not seen is a separate structure. No evidence of appendicitis.No evidence of sigmoid diverticulitis. LYMPH NODES: There is no intrapelvic nor inguinal adenopathy. REPRODUCTIVE: There is an IUD in the uterus again noted. Appears to be in satisfactory position. No other uterine findings. There is a cyst in the left ovary which measures 2 x 1.8 cm, probably follicular. Smaller 1.4 x 1.3 cm cyst noted in the opposite-right ovary. Tiny amount of fluid in the right-side of the cul-de-sac, similar to previous. URINARY BLADDER: No calculi nor obvious masses evident OSSEOUS: No significant osseous lesions. Degenerative disc disease lower lumbar spine. IMPRESSION: 1. Compared to the prior CT scan of 04/21/2020 there is again noted an IUD in the uterus and bilateral follicular ovarian cysts, with measurements as above. Small amount of fluid in the right-side of the cul-de-sac. 2. Small fat containing umbilical hernia, unchanged from the previous study. 3. No evidence of appendicitis. Indeed, the appendix is difficult to locate on this study. 4. No evidence of colitis pattern on this study. Lab Data Lab results reviewed: Yes I reviewed the patient's lab results. Labs: Laboratory Tests Range/Units 09/05/12/21 05/12/21 08:00 08:00 08:00 WBC (4.4-10.8) 10^3/uL RBC (3.93-5.22) 10^6/uL Hgb (11.2-15.7) g/dL Hct (36.0-46.0) % MCV (80-95) fL MCH (27.0-33.0) pg MCHC (32.0-36.0) % RDW (11.7-14.6) % Plt Count (130-400) 10^3/uL MPV (8.0-11.0) fL Immature Gran % Neutrophils % Lymphocytes % Monocytes % Eosinophils % Basophils % Nucleated RBC % % Absolute Neutrophils (1.2-6.7) 10^3/uL Absolute Lymphocytes (1.2-3.4) 10^3/uL Absolute Monocytes (0.1-0.8) 10^3/uL Absolute Eosinophils (0.0-0.7) 10^3/uL Absolute Basophils (0.0-0.2) 10^3/uL D-Dimer (<500) ng/mlFEU Sodium (136-145) mmol/L 146 H Potassium (3.5-5.1) mmol/L 4.0 Chloride (98-107) mmol/L 109 H Carbon Dioxide (21.0-32.0) mmol/L 27.8 Anion Gap (3-11) mmol/L 9.2 BUN (7-18) mg/dL 7 Creatinine (0.55-1.02) mg/dL 0.8 Estimated GFR/1.73 m2 (mL/min/1.73m2) >= 60.00 Glucose (74-106) mg/dL 90 Calcium (8.5-10.1) mg/dL 9.6 Magnesium (1.8-2.4) mg/dL 2.1 Total Bilirubin (0.2-1.0) mg/dL 0.6 AST (15-37) U/L 17 ALT (14-59) U/L 28 Alkaline Phosphatase (46-116) U/L 59 Troponin I (<0.06) ng/mL < 0.05 Total Protein (6.4-8.2) g/dL 8.0 Albumin (3.4-5.0) g/dL 4.5 Urine Color (Yellow) Straw Urine Clarity (Clear) Clear Urine pH (5-8) 7.5 Ur Specific [place] (1.005-1.025) 1.015 Urine Protein (Negative) mg/dL Negative Urine Ketones (Negative) mg/dL Negative Urine Blood (Negative) Negative Urine Nitrite (Negative) Negative Urine Bilirubin (Negative) Negative Urine Urobilinogen (Up TO 0.2) EU/dL 0.2 Ur Leukocyte Esterase (Negative) Negative Urine Glucose (Negative) mg/dL Negative Stl C.difficile Tox PCR (Negative) COVID-19 Source SARS-CoV-2 (PCR) (Negative) Range/Units 05/12/21 05/12/21 05/12/21 08:00 08:30 08:50 WBC (4.4-10.8) 10^3/uL 5.00 RBC (3.93-5.22) 10^6/uL 4.71 Hgb (11.2-15.7) g/dL 13.6 Hct (36.0-46.0) % 42.4 MCV (80-95) fL 90.0 MCH (27.0-33.0) pg 28.9 MCHC (32.0-36.0) % 32.1 RDW (11.7-14.6) % 12.4 Plt Count (130-400) 10^3/uL 218 MPV (8.0-11.0) fL 10.1 Immature Gran % 0.2 Neutrophils % 73.0 Lymphocytes % 19.4 Monocytes % 6.0 Eosinophils % 1.0 Basophils % 0.4 Nucleated RBC % % 0 Absolute Neutrophils (1.2-6.7) 10^3/uL 3.65 Absolute Lymphocytes (1.2-3.4) 10^3/uL 0.97 L Absolute Monocytes (0.1-0.8) 10^3/uL 0.30 Absolute Eosinophils (0.0-0.7) 10^3/uL 0.05 Absolute Basophils (0.0-0.2) 10^3/uL 0.02 D-Dimer (<500) ng/mlFEU 86 Sodium (136-145) mmol/L Potassium (3.5-5.1) mmol/L Chloride (98-107) mmol/L Carbon Dioxide (21.0-32.0) mmol/L Anion Gap (3-11) mmol/L BUN (7-18) mg/dL Creatinine (0.55-1.02) mg/dL Estimated GFR/1.73 m2 (mL/min/1.73m2) Glucose (74-106) mg/dL Calcium (8.5-10.1) mg/dL Magnesium (1.8-2.4) mg/dL Total Bilirubin (0.2-1.0) mg/dL AST (15-37) U/L ALT (14-59) U/L Alkaline Phosphatase (46-116) U/L Troponin I (<0.06) ng/mL Total Protein (6.4-8.2) g/dL Albumin (3.4-5.0) g/dL Urine Color (Yellow) Urine Clarity (Clear) Urine pH (5-8) Ur Specific [place] (1.005-1.025) Urine Protein (Negative) mg/dL Urine Ketones (Negative) mg/dL Urine Blood (Negative) Urine Nitrite (Negative) Urine Bilirubin (Negative) Urine Urobilinogen (Up TO 0.2) EU/dL Ur Leukocyte Esterase (Negative) Urine Glucose (Negative) mg/dL Stl C.difficile Tox PCR (Negative) COVID-19 Source Nasal/Nares SARS-CoV-2 (PCR) (Negative) Negative Range/Units 05/12/21 05/12/21 11:08 11:30 WBC (4.4-10.8) 10^3/uL RBC (3.93-5.22) 10^6/uL Hgb (11.2-15.7) g/dL Hct (36.0-46.0) % MCV (80-95) fL MCH (27.0-33.0) pg MCHC (32.0-36.0) % RDW (11.7-14.6) % Plt Count (130-400) 10^3/uL MPV (8.0-11.0) fL Immature Gran % Neutrophils % Lymphocytes % Monocytes % Eosinophils % Basophils % Nucleated RBC % % Absolute Neutrophils (1.2-6.7) 10^3/uL Absolute Lymphocytes (1.2-3.4) 10^3/uL Absolute Monocytes (0.1-0.8) 10^3/uL Absolute Eosinophils (0.0-0.7) 10^3/uL Absolute Basophils (0.0-0.2) 10^3/uL D-Dimer (<500) ng/mlFEU Sodium (136-145) mmol/L Potassium (3.5-5.1) mmol/L Chloride (98-107) mmol/L Carbon Dioxide (21.0-32.0) mmol/L Anion Gap (3-11) mmol/L BUN (7-18) mg/dL Creatinine (0.55-1.02) mg/dL Estimated GFR/1.73 m2 (mL/min/1.73m2) Glucose (74-106) mg/dL Calcium (8.5-10.1) mg/dL Magnesium (1.8-2.4) mg/dL Total Bilirubin (0.2-1.0) mg/dL AST (15-37) U/L ALT (14-59) U/L Alkaline Phosphatase (46-116) U/L Troponin I (<0.06) ng/mL < 0.05 Total Protein (6.4-8.2) g/dL Albumin (3.4-5.0) g/dL Urine Color (Yellow) Urine Clarity (Clear) Urine pH (5-8) Ur Specific [place] (1.005-1.025) Urine Protein (Negative) mg/dL Urine Ketones (Negative) mg/dL Urine Blood (Negative) Urine Nitrite (Negative) Urine Bilirubin (Negative) Urine Urobilinogen (Up TO 0.2) EU/dL Ur Leukocyte Esterase (Negative) Urine Glucose (Negative) mg/dL Stl C.difficile Tox PCR (Negative) Negative COVID-19 Source SARS-CoV-2 (PCR) (Negative) ECG Data Attestation: I personally reviewed and interpreted this ECG (s) as follows: Interpretation: EKG 07:49 shows sinus rhythm at 69, normal axis, incomplete right bundle branch block, no major change from prior 06/28/2020, no STEMI, nondiagnostic EKG Repeat EKG 11:13 shows sinus bradycardia at 59, normal axis, right bundle branch block, no major ST changes from prior, no WPW, no Brugada, no HOCM, QTC 405, nondiagnostic EKG HPI General Mode of arrival: ambulatory. Date/Time Provider Initiated Documentation: 05/12/21 07:39. Limitations to Documentation: no limitations. Information obtained by: patient, RN notes reviewed and old records reviewed. HPI Narrative: Preeti Hayes is a 36-year-old woman without reported major medical problems presenting to emergency department with chief complaint of abdominal cramping. Patient reports that 8 days ago she woke up in the morning and had nausea, diarrhea, abdominal cramping, and lightheadedness worse with standing. Patient reports that she felt quite unwell and unlike herself. She reports that symptoms improved after eating. Patient reports that this has occurred every morning since then. She reports that symptoms do improve with food. She reports that she also feels that her heart is racing, and on her wrist Fitbit has noted that her heart rate has gone to a max of 107 during these episodes of feeling that she has a racing heart; this max heart rate was noted while she was climbing the stairs. Patient reports that she has been seeing her PCP for this, and had lab work done on 05/09/2021 that she does not yet know the results of. Patient reports that she called her PCP this morning for ongoing symptoms, now with more severe abdominal cramping, and they directed her to the emergency department. Patient reports that in the past she has had several days intermittently where she felt similar, however symptoms were not severe and resolved after 1 day. She reports that in June 2020 she did have similar symptoms that were quite significant and underwent work-up at that time which was negative, symptoms only lasted for 1 day. Patient reports that she started a vegan diet 3 weeks ago. She states that she drinks 1 or 2 alcoholic drinks per week but has not had any alcohol in the past week. She states that she smokes marijuana once a week or so. She denies any tobacco use or any other recreational drug use. She reports history of seasonal allergies, shrimp allergy. No new medicines. She takes vitamin D3 and B12, no other onme-dzw-xwazyzr medications. She denies any other recent changes. She states that she has been drinking a significant amount of water, up to 1 gallon or so per day to try to combat symptoms. No recent travel, no family history of blood clots. Patient has a Mirena in place, was placed approximately 5 years ago. She currently denies any pain and has not been having pain other than intermittent abdominal pain, denies cough, fever, shortness of breath, vomiting, numbness, weakness, vertigo, rash. Patient states that she has had diarrhea every morning since onset of symptoms, no black or bloody stool. Related Data Home Medications Medication Instructions Recorded Confirmed multivitamin [Daily Multi-Vitamin] 1 ea PO DAILY 12/18/13 05/14/21 Mirena 1 ea INTRAUTERINE ONCE #1 implant 08/04/17 05/14/21 cyanocobalamin (vitamin B-12) 5,000 mcg PO DAILY 05/06/21 05/14/21 5,000 mcg capsule fluticasone propionate 50 1 spray INTRANASAL DAILY PRN 05/06/21 05/14/21 mcg/actuation nasal spray,suspension Saccharomyces boulardii [Florastor] 250 mg PO BID #20 cap 05/14/21 05/14/21 doxycycline monohydrate 100 mg PO BID #42 cap 05/14/21 05/14/21 ibuprofen 400 mg PO PRN PRN 05/14/21 05/14/21 metoclopramide HCl [Reglan] 10 mg PO Q6H PRN #10 tab 05/14/21 05/14/21 Previous Rx's Medication Instructions Recorded Saccharomyces boulardii [Florastor] 250 mg PO BID #20 cap 05/14/21 doxycycline monohydrate 100 mg PO BID #42 cap 05/14/21 metoclopramide HCl [Reglan] 10 mg PO Q6H PRN #10 tab 05/14/21 Allergies Allergy/AdvReac Type Severity Reaction Status Date / Time shrimp Allergy Severe below Verified 05/14/21 07:29 flaxseed Allergy Unknown Verified 05/14/21 07:29 acetaminophen [From Percocet] Allergy Hives and Verified 05/14/21 07:29 some tongue swelling oxycodone [From Percocet] Allergy Hives and Verified 05/14/21 07:29 some tongue swelling General Stated Complaint: GenMedical SELENE: 3 Review of Systems Narrative: Constitutional: denies fevers Eyes: denies eye pain ENT: denies ear pain, dental pain, sore throat Cardiovascular: denies chest pain, edema, reports lightheadedness Respiratory: denies SOB, cough GI: deniesvomiting, reports nausea, diarrhea, intermittent abdominal cramping : denies flank pain MSK: denies back pain, neck pain, arthralgias, myalgias Skin: denies rash Neuro: denies headaches, numbness, weakness, vertigo PFSH Medical History Colon wall thickening CT 03/2020 History of motion sickness Pt states getting worse as she gets older Lesion of tonsil Lesion of uvula Papilloma of oral cavity Rupture of ovarian cyst (~01/24/19) Dr. Henrry Arias Shrimp allergy anaphylaxis Stressful life event affecting family TMJ dysfunction Tonsil stone Vegan diet Apr 2021 Surgical History Cervical Procedure LEEP procedure 2006 - Pt states no anesthesia Hx of wisdom tooth extraction Post operative nausea Family History Father Hyperlipidemia Alcohol abuse Depression Substance abuse Alcohol Maternal Cousin Hilda-Danlos syndrome Multiple cousins Mother ALS (amyotrophic lateral sclerosis) Dx'ed ALS Social History Smoking/Tobacco Use Status: Never Smoking risk assessment performed?: Yes Alcohol Intake: current Alcohol Intake frequency: a few times a week Alcohol type: beer and wine Drug use: Occasionally Substance use type: marijuana Do you feel safe at home: Yes Do you feel safe in your relationship?: Yes Exam Narrative Exam Narrative: Constitutional: well and wfc-xhege-ridbogjrg, pleasant, conversing normally HENT: head atraumatic/normocephalic/normal inspection, mucous membranes moist Eyes: conjunctiva normal, sclera normal, pupils 3mm b/l Neck: no stridor, normal ROM, trachea midline Chest: normal inspection Resp: normal work of breathing, LCTAB Cardio: normal rate, normal rhythm, no murmur appreciated GI: abdomen soft, non-tender, non-distended Back: normal inspection, no rash Skin: warm, dry, normal color, no rash Neuro: alert, not altered, grossly non-focal, normal tone Ext: no edema, no posterior calf tenderness to palpation Psych: normal mood, normal affect, normal behavior Course Vital Signs Vital signs: Vital Signs Temperature 36.5 C 05/12/21 07:38 Pulse 70 05/12/21 07:38 Respiratory Rate 18 05/12/21 07:38 Blood Pressure 142/69 H 05/12/21 07:38 Pulse Oximetry 99 05/12/21 07:38 Temperature 36.5 C 05/12/21 07:38 Temperature Source Temporal Artery Scan 05/12/21 07:38 Pulse 70 05/12/21 07:38 Respiratory Rate 18 05/12/21 07:38 Blood Pressure 142/69 H 05/12/21 07:38 Blood Pressure Position Sitting 05/12/21 07:38 Pulse Oximetry 99 05/12/21 07:38 Oxygen Delivery Method Room Air 05/12/21 07:38 Oxygen Flow Rate 0 05/12/21 07:38
[2021-05-12 08:21] LABS: Bilirubin Negative (Negative); Blood Negative (Negative); Clarity Clear (Clear); Glucose Negative (Negative); Ketones Negative (Negative); Leukocyte Esterase Negative (Negative); Nitrite Negative (Negative); Specific Gravity 1.015 (1.005-1.025); Urobilinogen 0.2 EU/dL (Up TO 0.2); pH 7.5 (5-8)
[2021-05-12] MEDS: Normal Saline 1,000 ML 1000 ML IV ×2 (08:38→12:34)
[2021-05-12 08:41] LABS: Abs Immature Grans 0.01 10^3/uL (0.0-0.06); Absolute Basophil Count 0.02 10^3/uL (0.0-0.2); Absolute Eosinophil Count 0.05 10^3/uL (0.0-0.7); Absolute Lymphocyte Count 0.97 10^3/uL (1.2-3.4); Absolute Neutrophil Count 3.65 10^3/uL (1.2-6.7); Basophils % 0.4; HCT 42.4 % (36.0-46.0); HGB 13.6 g/dL (11.2-15.7); Immature Grans % 0.2; Lymphocytes % 19.4; MCH 28.9 pg (27.0-33.0); MCHC 32.1 % (32.0-36.0); MPV 10.1 fL (8.0-11.0); Nucleated RBC 0 %; Platelet Count 218 10^3/uL (130-400); RBC 4.71 10^6/uL (3.93-5.22); RDW 12.4 % (11.7-14.6); RDW-SD 41.1 fL
[2021-05-12 08:48] LABS: Source Nasal/Nares
[2021-05-12 08:50] LABS: Magnesium 2.1 mg/dL (1.8-2.4)
[2021-05-12 08:57] LABS: ALT 28 U/L (14-59); AST 17 U/L (15-37); Albumin 4.5 g/dL (3.4-5.0); Alkaline Phosphatase 59 U/L (46-116); Anion Gap 9.2 mmol/L (3-11); BUN 7 mg/dL (7-18); Bilirubin, Total 0.6 mg/dL (0.2-1.0); CO2 27.8 mmol/L (21.0-32.0); CREATININE 0.8 mg/dL (0.55-1.02); Calcium 9.6 mg/dL (8.5-10.1); Chloride 109 mmol/L (98-107); Glucose 90 mg/dL (74-106); Sodium 146 mmol/L (136-145)
[2021-05-12 08:58] LABS: Troponin I < 0.05 ng/mL (<0.06)
--- NOTE | 2021-05-12 09:30 | DI.CT_ITS ---
Exam(s) CT ABDOMEN PELVIS W EXAM: CT ABDOMEN PELVIS W CLINICAL HISTORY: abd pain, diarrhea. TECHNIQUE: Imaging Protocol: Axial computed tomography images with coronal and sagittal reformatted images were created and reviewed CONTRAST MATERIAL: Intravenous: Omnipaque 100cc Oral: Yes COMPARISON: CT CT ABDOMEN PELVIS W from 04/21/2020 FINDINGS: VISUALIZED LUNG BASES: No nodules nor pleural effusions evident. ABDOMEN: There is no ascites. LIVER: Again noted is a previously described small lesion in the superior aspect of the liver-right h epatic lobe. This has the appearance of a small benign hemangioma and measures approximately 10 x 9 millimeters. No other focal hepatic findings. No significant dilatation of intrahepatic ducts. GALLBLADDER/BILIARY: No obvious gallbladder pathology. CBD is not dilated. PANCREAS: No evidence of pancreatic mass nor dilatation of the pancreatic duct. SPLEEN: Spleen is not enlarged. No obvious intrasplenic lesions. Splenic and portal veins are paten t. ADRENALS: There are no significant adrenal masses. KIDNEYS:No cysts evident. No solid renal masses. No calculi nor hydronephrosis.. ABDOMINAL AORTA: Abdominal aorta is not enlarged. LYMPH NODES:There is no retroperitoneal nor paraaortic adenopathy. ABDOMINAL WALL: Small fat containing umbilical hernia. GI: There is no evidence of bowel obstruction, free air, nor abscess. No obvious colitis pattern. PELVIS: GI: Appendix is not seen is a separate structure. No evidence of appendicitis.No evidence of sigmoid diverticulitis. LYMPH NODES: There is no intrapelvic nor inguinal adenopathy. REPRODUCTIVE: There is an IUD in the uterus again noted. Appears to be in satisfactory position. No other uterine findings. There is a cyst in the left ovary which measures 2 x 1.8 cm, probably folli cular. Smaller 1.4 x 1.3 cm cyst noted in the opposite-right ovary. Tiny amount of fluid in the rig ht-side of the cul-de-sac, similar to previous. URINARY BLADDER: No calculi nor obvious masses evident OSSEOUS: No significant osseous lesions. Degenerative disc disease lower lumbar spine. IMPRESSION: 1. Compared to the prior CT scan of 04/21/2020 there is again noted an IUD in the uterus and bilatera l follicular ovarian cysts, with measurements as above. Small amount of fluid in the right-side of t he cul-de-sac. 2. Small fat containing umbilical hernia, unchanged from the previous study. 3. No evidence of appendicitis. Indeed, the appendix is difficult to locate on this study. 4. No evidence of colitis pattern on this study. RADIATION DOSE DELIVERED: 751.81mGy.cm Total DLP DATA REPOSITORY: All CT scans at this facility are submitted to the National Radiology Data Registry (NRDR) Dose Index Registry (DIR) with the [employer] ([employer]). RADIATION OPTIMIZATION: All CT scans at this facility use at least one of these dose optimization te chniques: automated exposure control; mA and/or kV adjustment per patient size (includes targeted exa ms where dose is matched to clinical indication); or iterative reconstruction.
--- NOTE | 2021-05-12 09:30 | DI.RAD_ITS ---
Exam(s) XR CHEST 2V PA LATERAL EXAM: XR CHEST 2V PA LATERAL CLINICAL HISTORY: lightheadedness. TECHNIQUE: 2D digital imaging was performed. COMPARISON: No exams were available for comparison FINDINGS: Heart size is normal. The mediastinum is not widened. Lungs are clear. No infiltrates nor pleural effusions. IMPRESSION: No acute pulmonary findings. DATA REPOSITORY: RADIATION DOSE DELIVERED:
[2021-05-12 09:33] LABS: D-Dimer 86 ng/mlFEU (<500)
[2021-05-12 09:43] LABS: COVID-19 PCR Negative (Negative)
[2021-05-12] MEDS: Breeza Beverage 473 ML BTL PO (09:54)
[2021-05-12] MEDS: Omnipaque 350 MG/ML 50 ML BTL IJ (09:54)
--- NOTE | 2021-05-12 11:00 | RT.EKG_ITS ---
APPROVED REPORT Exam: Resting ECG Reason for Exam: sob Patient Location: E HR:59 bpm ECG Measurements Heart Rate 59 AXIS AR 130 P 31 QRSd 121 QRS 8 QT 407 T 18 QTc 405 Conclusion Sinus bradycardia...rate< 60 Right bundle branch block...QRSd>120, terminal axis(90,270) sinus bradycardia at 59, normal axis, right bundle branch block, no major ST changes from prior, no W PW, no Brugada, no HOCM, QTC 405, nondiagnostic EKG
[2021-05-12 11:30] LABS: Troponin I < 0.05 ng/mL (<0.06)
[2021-05-12] MEDS: Omnipaque 350 MG/ML 100 ML BTL IJ (12:08)
[2021-05-12] MEDS: Normal Saline Flush 10 ML SYR IVP ×2 (12:11→12:34)
[2021-05-12] MEDS: Ondansetron 4 MG/2 ML VIAL IVP (12:33)
--- NOTE | 2021-05-12 12:45 | HOLTER_ITS ---
APPROVED REPORT Conclusion This was a 48-hour Holter monitor ordered for symptoms of lightheadedness Rhythm throughout was sinus. Average heart rate was 83. Minimum was 46, maximum 113 There were no ventricular dysrhythmias There were very rare isolated atrial premature beats There was no atrial fibrillation. There was no high-grade AV block. There were no pauses greater th an 3 seconds No patient symptoms were reported
[2021-05-12 12:53] LABS: C Diff PCR Negative (Negative)
--- NOTE | 2021-05-12 13:06 | NUR.NOTE ---
patient rounded on by RN and MD Gunderson. Nursing Note:
[2021-05-12 21:54] LABS: Campylobacter PCR Negative (Negative); Salmonella PCR Negative (Negative); Shiga Toxin PCR Negative (Negative); Shigella/Enteroinvasive Ecoli Negative (Negative)
[2021-05-13 10:46] LABS: Lyme Ab w Rflx to Lyme Confirm Positive (Negative)
[2021-05-13 12:10] LABS: Lyme IgG Ab Negative (Negative); Lyme IgM Ab Positive (Negative)
[2021-05-13 22:15] LABS: Anaplasma phagocytophilum Negative (Negative); B. miyamotoi PCR Negative (Negative); Babesia divergens/MO-1 Negative (Negative); Babesia duncani Negative (Negative); Babesia microti Negative (Negative); Ehrlichia chaffeensis Negative (Negative); Ehrlichia ewingii/canis Negative (Negative); Ehrlichia muris eauclairensis Negative (Negative)
== END 2021-05-12 13:43 | disposition home or self-care (01) ==
PROVIDERS: Emergency Provider Student in an Organized Health Care Education/Training Program; PCP Nurse Practitioner Adult Health
DX: R42 Dizziness and giddiness (principal); R10.84 Generalized abdominal pain; R11.0 Nausea; R19.7 Diarrhea, unspecified; Z20.822 Contact with and (suspected) exposure to COVID-19; Z03.818 Encounter for observation for suspected exposure to other biological agents ruled out
CPT/HCPCS: 36415; 80053; 81025; 86617; 87493; 87505; 87635; 87798; 93005; 96361; 96374; 99285; 71046; 74177; 81003; 83735; 84484; 85025; 85379; 86618; 93010; 93225; J2405; J3490; Q9967

== ENCOUNTER 2021-05-12 12:59 | Outpatient (RCR) | payer OTHER, SELFPAY | END 2021-05-22 23:59 | disposition home or self-care (01) | LOC: RT 12:59 | PROVIDERS: PCP Nurse Practitioner Adult Health; Visit Provider Student in an Organized Health Care Education/Training Program | DX: R42 Dizziness and giddiness (principal) | CPT/HCPCS: 93226 ==

== ENCOUNTER 2021-05-14 07:18 | Emergency (ER) | payer OTHER, MEDICAID, SELFPAY ==
[2021-05-14 07:25] VITALS: BP 136/73; PULSE 74; RESP 18; TEMP 36.8; O2SAT 99
--- OUTSIDE RECORDS SUMMARY | 2021-05-14 07:25 | XMS_ITS ---
:1985 Author Organization [facility] Address [address] [place] [address] Care Team Providers Name Role Phone Larisa Dubois Unavailable Unavailable PROBLEMS Unknown Problems ALLERGIES Substance Reaction Event Type Date Status seasonal rhintitis Unknown Non Drug Allergy Mar, Activ e ENCOUNTERS Encounter Location Date Diagnosis [facility] [address] [place], [place], [id number] [facility] [address] [place], [address] [facility] [address] [place], [id number] [facility] [address] [place] [address] Mar, [id number] [facility] [address] [place] [address] Mar, [id number] IMMUNIZATIONS No Known Immunizations SOCIAL HISTORY Qualifiers Date Never Smoker REASON FOR REFERRAL FUNCTIONAL STATUS PLAN OF CARE VITAL SIGNS MEDICATIONS Medication Instructions Dosage Frequency Start End Duration Statu s Date Date Multivitamin as directed Unknown Adult - Nasacort Allergy Nasally Once a 1 spray in 24h 30 da y(s) Unknown 24HR 55 MCG/ACT day each nostril Mirena (52 MG) as directed Unkno wn 20 MCG/24HR PROCEDURES Procedure Date Ordered Result Body Site Hearing Evaluation Report 2020-04-01 N/A RESULTS No Results REASON FOR VISIT OMT, office notes, OMT, SEND omt OV note to Vijaya, BACK PAIN WITH OMT referral done, BACK PAINWITH OMT referral done, pt r/s 05/21, BACK PAIN WITH OMT referral done, pt called to r.s 05/07/2020 DAVE , error, vv Insurance Providers [facility] Patient Patient Patient Patient Patient Subscriber Subscriber Subscriber Group Insurance Plan Plan Plan Plan ID Relationship Address Phone Name Date of ID Name Date of No Type Insurance Insurance Insurance Coverage to Subscriber Address Phone Name Dates MEDICAID EDS MEDICAID self KATHIE [id number] [place] [facility] [id number] SELF PAY [address] SELF PAY self KATHIE 1985 [place] [id number] INSURANCE MEDICAL (GENERAL) HISTORY Type Description Date Medical History CN Treated with LEEP in 2006 Medical History Sp Ab 2014 Medical History encounter for care in [facility] pregn[facility] Medical History norma danlos syndrome type II Surgical History LEEP 2007 Hospitalization History childbirth
[2021-05-14 07:31] VITALS: RESP 18
--- NOTE | 2021-05-14 08:34 | ED.GENADUL_ITS ---
Discharge Plan Disposition Patient Disposition: HOME Condition: Stable Discharge Details Clinical Impression: Acute Lyme disease Primary Care Provider: Michelle Claudio ED Provider: Diana Adkins Home Meds and New Rx's Prescriptions: New metoclopramide HCl [Reglan] 10 mg tablet 10 mg PO Q6H PRNQty: 10 RF: 0 Saccharomyces boulardii [Florastor] 250 mg capsule 250 mg PO BID Qty: 20 RF: 0 doxycycline monohydrate 100 mg capsule 100 mg PO BID Qty: 42 RF: 0 Continued fluticasone propionate [Flonase Allergy Relief] 50 mcg/actuation spray,suspension 1 spray intranasal DAILY PRN (Reason: allergy symptoms) RF: 0 cyanocobalamin (vitamin B-12) 5,000 mcg capsule 5,000 mcg PO DAILY RF: 0 multivitamin [Daily Multi-Vitamin] 1 EACH tablet 1 ea PO DAILY RF: 0 Mirena 1 EACH intrauterine device 1 ea Intrauterine ONCE Qty: 1 RF: 0 ibuprofen 200 mg Tablet 400 mg PO PRN PRNRF: 0 Discharge Instructions Additional Instructions: Please follow-up with your doctor, begin taking the antibiotic as prescribed Take the Florastor and Reglan as needed for nausea Please return with vomiting, persistent fever, or should you have worsening or persistent symptoms despite taking antibiotics for several days, will likely take 48 to 72 hours for the antibiotic to become effective Take Reglan at least half an hour before taking the antibiotic if you are nauseous Discharge Data Discharge Date/Time-TO BE ENTERED AT DEPARTURE: 05/14/21 11:00 Medical Decision Making Patient had a very thorough evaluation on the with negative Covid test, negative CT abdomen and pelvis, negative CPK, thyroid within normal limits, and diagnostic blood work reassuring, showed positive Lyme with Western blot pending It would likely treat her for Lyme disease although she denies any known tick bite Her vitals are stable, she is wearing her Holter monitor in the room, she is alert and oriented and does not exhibit any signs or symptoms of meningitis or more significant pathology at this time She will receive Zofran, IV Tylenol, and fluids She did take ibuprofen prior to arrival Feeling symptomatically improved, tolerating p.o. Initiated doxycycline, 14-day by, Florastor, antiemetics Close outpatient evaluation recommended 24 to 48 hours none possible patient has residual gait at time of discharge home feeling symptomatically improved Reviewed all diagnostic labs and imaging from prior evaluation including negativ e CT scan per radiology interpretation HPI General Mode of arrival: ambulatory . Date/Time Provider Initiated Documentation: 05/14/21 07:35 . Limitations to Documentation: no limitations . Information obtained by: patient . HPI Narrative: This 36-year-old female presents with report of generalized myalgia, lightheadedness persistent for the past several days. She states that she frequently has lightheadedness and being evaluated for POTS at this time. She does state that the palpitation and myalgias are new. She states she generally feels tired and unwell. She denies any known sick contacts. She denies any chest pain or shortness of breath at this time. She does state her symptoms are exacerbated by going from sitting to standing. She has any falls or injuries. She does like at the prolonged for that her line was positive from her prior analysis earlier this week. She is evaluated with CT abdomen and pelvis did not show acute abnormality and was set up with a Zio patch monitor for home which she has been wearing. She denies any vomiting but has been nauseous. She denies any diarrhea. She is fully vaccinated for COVID-19 and have negative test several days ago. She denies any fever. Related Data Home Medications Medication Instructions Recorded Confirmed multivitamin [Daily Multi-Vitamin] 1 ea PO DAILY 12/18/13 05/14/21 Mirena 1 ea INTRAUTERINE ONCE #1 implant 08/04/17 05/14/21 cyanocobalamin (vitamin B-12) 5,000 mcg PO DAILY 05/06/21 05/14/21 5,000 mcg capsule fluticasone propionate 50 1 spray INTRANASAL DAILY PRN 05/06/21 05/14/21 mcg/actuation nasal spray,suspension Saccharomyces boulardii [Florastor] 250 mg PO BID #20 cap 05/14/21 05/14/21 doxycycline monohydrate 100 mg PO BID #42 cap 05/14/21 05/14/21 ibuprofen 400 mg PO PRN PRN 05/14/21 05/14/21 metoclopramide HCl [Reglan] 10 mg PO Q6H PRN #10 tab 05/14/21 05/14/21 Previous Rx's Medication Instructions Recorded Saccharomyces boulardii [Florastor] 250 mg PO BID #20 cap 05/14/21 doxycycline monohydrate 100 mg PO BID #42 cap 05/14/21 metoclopramide HCl [Reglan] 10 mg PO Q6H PRN #10 tab 05/14/21 Allergies Allergy/AdvReac Type Severity Reaction Status Date / Time shrimp Allergy Severe below Verified 05/14/21 07:29 flaxseed Allergy Unknown Verified 05/14/21 07:29 acetaminophen [From Percocet] Allergy Hives and Verified 05/14/21 07:29 some tongue swelling oxycodone [From Percocet] Allergy Hives and Verified 05/14/21 07:29 some tongue swelling General Stated Complaint: [facility] SELENE: 3 Review of Systems All systems reviewed & are unremarkable except as noted in HPI and below PFSH Medical History Colon wall thickening CT 03/2020 History of motion sickness Pt states getting worse as she gets older Lesion of tonsil Lesion of uvula Papilloma of oral cavity Rupture of ovarian cyst (~01/24/19) Dr. Henrry Arias Shrimp allergy anaphylaxis Stressful life event affecting family TMJ dysfunction Tonsil stone Vegan diet Apr 2021 Surgical History Cervical Procedure LEEP procedure 2006 - Pt states no anesthesia Hx of wisdom tooth extraction Post operative nausea Family History Father Hyperlipidemia Alcohol abuse Depression Substance abuse Alcohol Maternal Cousin Hilda-Danlos syndrome Multiple cousins Mother ALS (amyotrophic lateral sclerosis) Dx'ed ALS Social History Smoking/Tobacco Use Status: Never Smoking risk assessment performed?: Yes Alcohol Intake: current Alcohol Intake frequency: a few times a week Alcohol type: beer and wine Drug use: Occasionally Substance use type: marijuana Do you feel safe at home: Yes Do you feel safe in your relationship?: Yes Exam Const General: cooperative, comfortable and no acute distress HENMT Mouth: oral mucosae normal Eyes Pupils: PERRL EOM: EOM intact bilaterally Neck Other: No carotid bruits Resp Effort & Inspection: normal respiratory effort Auscultation: clear to auscultation bilaterally Cardio Rate: regular rate Rhythm: regular rhythm Other: No murmur GI Other: No abdominal tenderness Skin General skin exam: no rashes or lesions noted Neuro General: patient alert and patient oriented x3 Cranial Nerves: CN's II-XI intact bilaterally and tongue midline Speech: speech normal Extrem Other: No peripheral edema, distal pulses intact Course Vital Signs Vital signs: Vital Signs Temperature 36.8 C 05/14/21 07:25 Pulse 74 05/14/21 07:25 Respiratory Rate 18 05/14/21 07:25 Blood Pressure 136/73 05/14/21 07:25 Pulse Oximetry 99 05/14/21 07:25 Temperature 36.8 C 05/14/21 07:25 Pulse 74 05/14/21 07:25 Respiratory Rate 18 05/14/21 07:31 Respiratory Effort Non-Labored 05/14/21 07:31 Respiratory Depth Normal 05/14/21 07:31 Respiratory Pattern Normal 05/14/21 07:31 Blood Pressure 136/73 05/14/21 07:25 Blood Pressure Position Sitting 05/14/21 07:25 Pulse Oximetry 99 05/14/21 07:25 Oxygen Delivery Method Room Air 05/14/21 07:25 Oxygen Flow Rate 0 05/14/21 07:25 Pain Level 7 05/14/21 07:25
[2021-05-14 08:49] LABS: Abs Immature Grans 0.01 10^3/uL (0.0-0.06); Absolute Basophil Count 0.02 10^3/uL (0.0-0.2); Absolute Eosinophil Count 0.05 10^3/uL (0.0-0.7); Absolute Lymphocyte Count 1.13 10^3/uL (1.2-3.4); Absolute Monocyte Count 0.32 10^3/uL (0.1-0.8); Absolute Neutrophil Count 4.78 10^3/uL (1.2-6.7); Basophils % 0.3; Eosinophils % 0.8; HCT 40.6 % (36.0-46.0); HGB 13.2 g/dL (11.2-15.7); Immature Grans % 0.2; Lymphocytes % 17.9; MCH 29.5 pg (27.0-33.0); MCHC 32.5 % (32.0-36.0); MCV 90.6 fL (80-95); MPV 9.8 fL (8.0-11.0); Monocytes % 5.1; Neutrophils % 75.7; Nucleated RBC 0 %; Platelet Count 198 10^3/uL (130-400); RBC 4.48 10^6/uL (3.93-5.22); RDW 12.5 % (11.7-14.6); RDW-SD 41.4 fL; WBC 6.31 10^3/uL (4.4-10.8)
[2021-05-14] MEDS: Normal Saline 1,000 ML 1000 ML IV (08:54)
[2021-05-14] MEDS: ACETAMINOPHEN 1,000 MG/100 ML BTL 400 MG IVPB (08:55)
[2021-05-14] MEDS: Ondansetron 4 MG/2 ML VIAL IVP (08:55)
[2021-05-14 09:03] LABS: ALT 23 U/L (14-59); AST 15 U/L (15-37); Albumin 4.5 g/dL (3.4-5.0); Alkaline Phosphatase 67 U/L (46-116); Anion Gap 5.8 mmol/L (3-11); BUN 7 mg/dL (7-18); Bilirubin, Total 0.6 mg/dL (0.2-1.0); CO2 30.2 mmol/L (21.0-32.0); CREATININE 0.8 mg/dL (0.55-1.02); Calcium 9.4 mg/dL (8.5-10.1); Chloride 107 mmol/L (98-107); Creatine Kinase 80 U/L (26-192); Glucose 96 mg/dL (74-106); Magnesium 2.1 mg/dL (1.8-2.4); Potassium 3.7 mmol/L (3.5-5.1); Sodium 143 mmol/L (136-145); Total Protein 7.8 g/dL (6.4-8.2)
[2021-05-14 09:54] VITALS: BP 115/62; PULSE 57; RESP 16; TEMP 36.6; O2SAT 100
[2021-05-14 10:04] LABS: HCG Qual (Serum) Negative
[2021-05-14 10:55] VITALS: BP 126/72; PULSE 60; RESP 16; O2SAT 100
== END 2021-05-14 11:00 | disposition home or self-care (01) ==
PROVIDERS: Emergency Provider Physician Assistant; PCP Nurse Practitioner Adult Health
DX: A69.20 Lyme disease, unspecified (principal); M79.10 Myalgia, unspecified site; R00.2 Palpitations; R11.0 Nausea
CPT/HCPCS: 36415; 80053; 82550; 96361; 96374; 96375; 99284; 83735; 84703; 85025; J0131; J2405

== ENCOUNTER 2021-06-17 00:48 | Outpatient (CLI) | payer OTHER, SELFPAY ==
--- NOTE | 2021-06-17 | DI.US_ITS ---
APPROVED REPORT EXAM: Comprehensive 2D, Doppler, and color-flow Echocardiogram Patient Location: Out-Patient Underwriting Clerk: Rosa Isela Stout RDCS (AE) Indications: Persistent Lightheadedness Other Information Study Quality: Adequate Conclusion Normal left ventricular wall thickness and chamber size. Estimated ejection fraction is 60 to 65%. Wall motion is normal Normal right ventricular size and systolic function Both atria are normal in size There is no structural or hemodynamically significant valvular disease Normal estimated right ventricular systolic pressure Wall motion Left Ventricle The left ventricle is normal size. The left ventricular systolic function is normal. The left ventric ular ejection fraction is within the normal range. There is normal left ventricular wall thickness. T here is normal LV segmental wall motion. There is no ventricular septal defect visualized. LVEF is 60 -65%. Right Ventricle The right ventricle is normal size. The right ventricular systolic function is normal. The RVSP is 17 .9 mmHg. Atria The left atrium size is normal. The right atrium size is normal. The interatrial septum is intact wit h no evidence for an atrial septal defect. Aortic Valve The aortic valve is normal in structure. Aortic valve is trileaflet. There is no aortic valvular sten osis. No aortic regurgitation is present. Mitral Valve The mitral valve is normal in structure. No evidence of mitral valve stenosis. Trace mitral regurgita tion. Tricuspid Valve The tricuspid valve is normal in structure. There is no tricuspid valve stenosis. Mild tricuspid regu rgitation. Pulmonic Valve The pulmonary valve is normal in structure. There is no pulmonic valvular stenosis. Trace pulmonic re gurgitation. Great Vessels The aortic root is normal in size. The ascending aorta is normal in size. Aortic arch is normal in ca liber. IVC is normal in size and collapses >50% with inspiration. Pericardium There is no pericardial effusion. 2D Dimensions IVSD d PLAX 0.63 cm F: 0.6-1.0 LV Vol A2C d MOD 115.8 mL LVPW d PLAX 0.63 cm F: 0.6 - 1.0 LV Vol A4C d MOD 99.0 mL LVID d PLAX 4.67 cm F: 3.8 - 5.2 LA vol/ BSA A4C s A-L 18.0 mL/m2 LVDs 3.00 cm F: 2.2 - 3.5 LA Area A4C s MOD 13.83 cm2 Ao Root d 2.48 cm F: 2.7 - 3.3 LV EF A4C MOD 60.6 % RA Area A4C 10.11 cm2 LV EF A2C MOD 66.3 % RA Vol/ BSA A4C s A-L 12.7 mL/m2 LV EF Biplane MOD 64.1 % Ao Asc Diam d 2.70 cm F: 2.3 - 3.1 SV 69.86 mL LV EF Teichholz 64.6 % SV Index 40.49 mL/m2 LVEF ([employer]) 64.11 % F: 54 - 74 LV Volume 86.06 mL F: 46 - 106 LV Volume Index 50.03 mL/m2 F: 29 - 61 LV Vol Biplane MOD 109.0 mL FS 35.20 % M-Mode TAPSE 2.60 cm (M/F) >1.7 LV Diastology MV E' medial 0.151 (>0.07 m/s) E/A Ratio 2.0 LV E/e MED 6.00 (<14) MV E Vmax 0.90 (0.4-1.3 m/s) MV E' lateral 0.119 (>0.1 m/s) MV A Vmax 0.45 (0.4-1.3 m/s) LV E/e LAT 7.55 (<14) MV E/A Ratio 1.85 MV E/E' medial 6.01 MV E/E' lateral 7.58 Aortic Valve LVOT Area 2.72 cm2 AoV Area Vmax 2.59 cm2 LVOT Vmax 1.39 m/s AoV Area/ BSA (Vmax) 1.50 cm2/m2 LVOT Mean Eugene. 0.86 m/s CLEM Mean Eugene. 2.17 cm2 LVOT Peak Grad 7.7 mmHg CLEM Mean Eugene. Index 1.26 cm2/m2 LVOT Mean Grad 3.5 mmHg LVOT VTI 0.306 m LVOT Diam s 1.85 cm AoV Vmax 1.46 m/s Velocity Ratio 0.95 AoV Mean Eugene. 1.08 m/s AoV Peak Grad 8.5 mmHg LVOT SV 83.22 mL AoV Mean Grad 5.0 mmHg AoV VTI 0.313 m AoV Area VTI 2.66 cm2 AoV Area/ BSA (VTI) 1.54 cm/m2 Mitral Valve MV DT 135 (160-240 msec) MV PHT 39 msec MV Area PHT 5.63 cm2 Pulmonary Valve PV Vmax 1.28 (0.5-1.5 m/s) RVOT Peak Gr. 3.99 mmHg PV Peak Grad 6.6 mmHg RVOT Mean Gr. 2.20 mmHg PV Mean Grad 3.2 mmHg RVOT VTI 0.217 m PV VTI 0.263 m RVOT Vmax 1.00 m/s Tricuspid Valve TR Peak Grad 14.9 mmHg TR Vmax 1.93 m/s RA Pressure 3.00 mmHg RVSP (TR) 17.9 mmHg
== END 2021-06-17 01:08 ==
PROVIDERS: PCP Nurse Practitioner Adult Health; Visit Provider Student in an Organized Health Care Education/Training Program
DX: R42 Dizziness and giddiness (principal)
CPT/HCPCS: 93306

== ENCOUNTER 2025-04-25 20:29 | Outpatient (REF) | payer BC, SELFPAY ==
[2025-04-27 12:11] LABS: Lyme Ab w Rflx to Lyme Confirm Positive (Negative)
[2025-04-27 14:51] LABS: Lyme IgG Ab Negative (Negative)
[2025-04-29 15:28] LABS: B. miyamotoi PCR Negative (Negative); Babesia divergens/MO-1 Negative (Negative); Ehrlichia muris eauclairensis Negative (Negative)
== END 2025-04-25 20:30 | disposition home or self-care (01) ==
LOC: LBN 20:29
PROVIDERS: PCP Nurse Practitioner Adult Health; Visit Provider Nurse Practitioner Family
DX: R53.83 Other fatigue (principal)
CPT/HCPCS: 86617; 87798; 86618